=== PATIENT | female | born 1975 | race Caucasian/White ===

== ENCOUNTER 2023-04-03 18:46 | Emergency (ER) | payer MEDICARE, MEDICAID, SELFPAY ==
[2023-04-03 18:57] VITALS: BP 159/98; PULSE 111; RESP 16; TEMP 37.2; O2SAT 94; BMI 44.5
--- NOTE | 2023-04-03 19:41 | ED.GENADUL1 ---
Documented by User: Jesus Gatica MD 04/03/23 19:46 HPI - General Adult General Chief complaint: Fall Stated complaint: FALL Time Seen by Provider: 04/03/23 19:21 Source: patient Mode of arrival: walk-in Limitations: physical limitation History of Present Illness HPI narrative: the patient's here to be violated for abdominal pain. She was walking at a normal paced today and fell forward. She had her upper stomach. She is concerned because she is on Coumadin. 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 She's had numerous CTs in the past for her other medical conditions. She said her most recent INR was therapeutic. She has a little discomfort in her right wrist but it's her mid abdomen that hurts the most. She also has a loop recorder an insulin pump in her abdominal area. She did not have a syncopal episodes, no near syncopal episodes and she felt fine before this simple uncomplicated fall. She has no pain to her lower extremities had or neck. Related Data Allergies Allergy/AdvReac Type Severity Reaction Status Date / Time Unable to Assess Allergy Verified 04/03/23 18:56 PFSH PFS Social History Smoking status: Never smoker Exam Constitutional Vital Signs - 24 hr 04/03/23 18:57 04/03/23 20:33 Temperature 98.9 F Pulse Rate [Monitor] 111 H 88 Respiratory Rate 16 16 Blood Pressure [Left Arm] 159/98 H 134/95 H Pulse Oximetry 94 L 96 Oxygen Delivery Method Room Air Room Air Documenting provider has reviewed patient's vital signs: yes Common normals: no apparent distress General appearance: comfortable HENMT Common normals: normocephalic and head/scalp atraumatic Respiratory Common normals: normal respiratory effort and no use of accessory muscles Other: ribs are nontender to palpation GI Common normals: Normal to inspection, nondistended, normoactive bowel sounds present Other: minor abrasion to the epigastric area otherwise no bruising or hematomas acutely or from related trauma. Insulin pump in the lower left abdomen. Abdomen morbidly obese. No acute peritoneal findings Neuro Common normals: oriented x3 and CN's II-XII intact bilaterally Course Vital Signs Vital signs: Vital Signs Temperature 98.9 F 04/03/23 18:57 Pulse Rate 111 H 04/03/23 18:57 Respiratory Rate 16 04/03/23 18:57 Blood Pressure 159/98 H 04/03/23 18:57 Pulse Oximetry 94 L 04/03/23 18:57 Oxygen Delivery Method Room Air 04/03/23 18:57 Temperature 98.9 F 04/03/23 18:57 Pulse Rate 88 04/03/23 20:33 Respiratory Rate 16 04/03/23 20:33 Blood Pressure 134/95 H 04/03/23 20:33 Pulse Oximetry 96 04/03/23 20:33 Oxygen Delivery Method Room Air 04/03/23 20:33 Medical Decision Making MDM Narrative Medical decision making narrative: this patient presents for abdominal pain while taking Coumadin and is concerned about internal injury. She accepts the fact that we will have to give her more radiation with the CT scan. Her orthopedic examinations of the extremities is told benign and she does not need imaging. The care will be turned over to Dr. Jackman at the change of shift. Discharge Plan Discharge Chief Complaint: Fall Clinical Impression: Contusion of abdominal wall Patient Disposition: Home, Self-Care Instructions: Contusion in Adults (ED) Stand Alone Forms: Portal Instructions Referrals: Physician,Non-Staff, MD [Primary Care Provider] - 1 week Follow Up Appointments: follow up with your doctor next week for recheck Documented by User: Jonh Jackman MD 04/03/23 20:55 HPI - General Adult General Chief complaint: Fall Stated complaint: FALL Time Seen by Provider: 04/03/23 19:21 Related Data Allergies Allergy/AdvReac Type Severity Reaction Status Date / Time Unable to Assess Allergy Verified 04/03/23 18:56 PFSH PFSH Social History Smoking status: Never smoker Exam Constitutional Vital Signs - 24 hr 04/03/23 18:57 04/03/23 20:33 Temperature 98.9 F Pulse Rate [Monitor] 111 H 88 Respiratory Rate 16 16 Blood Pressure [Left Arm] 159/98 H 134/95 H Pulse Oximetry 94 L 96 Oxygen Delivery Method Room Air Room Air Course Vital Signs Vital signs: Vital Signs Temperature 98.9 F 04/03/23 18:57 Pulse Rate 111 H 04/03/23 18:57 Respiratory Rate 16 04/03/23 18:57 Blood Pressure 159/98 H 04/03/23 18:57 Pulse Oximetry 94 L 04/03/23 18:57 Oxygen Delivery Method Room Air 04/03/23 18:57 Temperature 98.9 F 04/03/23 18:57 Pulse Rate 88 04/03/23 20:33 Respiratory Rate 16 04/03/23 20:33 Blood Pressure 134/95 H 04/03/23 20:33 Pulse Oximetry 96 04/03/23 20:33 Oxygen Delivery Method Room Air 04/03/23 20:33 Medical Decision Making MDM Narrative Medical decision making narrative: this patient presents for abdominal pain while taking Coumadin and is concerned about internal injury. She accepts the fact that we will have to give her more radiation with the CT scan. Her orthopedic examinations of the extremities is told benign and she does not need imaging. The care will be turned over to Dr. Jackman at the change of shift. care assumed at change of shift. CT abdomen pending and returned as normal. Patient informed of the results and discharge home to follow up with her doctor Discharge Plan Discharge Chief Complaint: Fall Clinical Impression: Contusion of abdominal wall Patient Disposition: Home, Self-Care Instructions: Contusion in Adults (ED) Stand Alone Forms: Portal Instructions Referrals: Physician,Non-Staff, MD [Primary Care Provider] - 1 week Follow Up Appointments: follow up with your doctor next week for recheck
--- NOTE | 2023-04-03 19:43 | CT_ITS ---
[place] [address] Patient Name: BOBBY JULIO MRN: [id number] date: 1975 Sex: F Assigned Patient Location: ER Current Patient Location: ED.MAIN Accession/Order Number: [id number] Exam Date: 04/03/2023 19:58 Report Date: 04/03/2023 20:36 At the request of: ORION MENJIVAR Procedure: CT abdomen pelvis wo con EXAMINATION: CT abdomen pelvis wo con, 04/03/2023 7:58 PM EDT HISTORY: Trauma COMPARISON: 01/03/2023 TECHNIQUE: CT scan of the abdomen and pelvis was performed without IV contrast. CT dose reduction technique was used, including Automated Exposure Control. FINDINGS: LOWER CHEST: The visualized lungs are clear. LIVER: There is hepatomegaly. GALLBLADDER AND BILIARY SYSTEM: Status post cholecystectomy. SPLEEN: Unremarkable. PANCREAS: There is mild diffuse fatty atrophy of the pancreas. No pancreatic ductal dilatation. ADRENAL GLANDS: Unremarkable. KIDNEYS AND URETERS: No nephrolithiasis or hydronephrosis. No ureteral calculus. BLADDER: Unremarkable. GASTROINTESTINAL TRACT: No evidence of bowel obstruction or colitis. Moderate amount of stool in the colon. A normal appendix is visualized. VASCULATURE: The abdominal aorta is normal in caliber. RETROPERITONEUM: No lymphadenopathy. PERITONEUM/MESENTERY: No abdominal ascites. No free air. PELVIS: No pelvic ascites or lymphadenopathy. BODY WALL: Tiny fat-containing umbilical hernia. BONES: No acute abnormality. Degenerative changes of the sacroiliac joints bilaterally. IMPRESSION: 1. No acute process in the abdomen or pelvis. 2. Hepatomegaly. Electronically authenticated by: MARIA TERESA ATKINSON Date: 04/03/2023 20:36
[2023-04-03] MEDS: ACETAMINOPHEN 500 MG TABLET 1000 MG PO (20:27)
[2023-04-03 20:33] VITALS: BP 134/95; PULSE 88; RESP 16; O2SAT 96
== END 2023-04-03 21:06 | disposition home or self-care (01) ==
PROVIDERS: Emergency Provider Internal Medicine
DX: S30.1XXA Contusion of abdominal wall, initial encounter (principal); W19.XXXA Unspecified fall, initial encounter; Y93.01 Activity, walking, marching and hiking; Z79.01 Long term (current) use of anticoagulants
CPT/HCPCS: 74176; 99284

== ENCOUNTER 2023-04-22 08:58 | Outpatient (OUT) | payer MEDICARE, MEDICAID, SELFPAY ==
--- NOTE | 2023-04-22 | XR_ITS ---
The [address] [address] Patient Name: BOBBY JULIO MRN: [id number] date: 1975 Sex: F Assigned Patient Location: [facility] Current Patient Location: [facility] Accession/Order Number: [id number] Exam Date: 04/22/2023 09:14 Report Date: 04/22/2023 09:49 At the request of: JAYCE GAMING Procedure: XR foot RT min 3V PROCEDURE: XR foot RT min 3V, XR ankle RT min 3V HISTORY: RIGHT FOOT PAIN ; right ankle and dorsal foot pain in COMPARISON: None. FINDINGS: BONES:No fracture, acute abnormality, or significant arthropathy. SOFT TISSUES:No visible soft tissue swelling. EFFUSION:None visible. OTHER: Negative. IMPRESSION: 1. No acute bone abnormality, significant degenerative changes, or suspicious findings of the right ankle and foot. Electronically authenticated by: OMER CHARLES Date: 04/22/2023 09:49
--- NOTE | 2023-04-22 | XR_ITS ---
The [address] [address] Patient Name: BOBBY JULIO MRN: [id number] date: 1975 Sex: F Assigned Patient Location: [facility] Current Patient Location: [facility] Accession/Order Number: [id number] Exam Date: 04/22/2023 09:14 Report Date: 04/22/2023 09:49 At the request of: JAYCE GAMING Procedure: XR ankle RT min 3V PROCEDURE: XR foot RT min 3V, XR ankle RT min 3V HISTORY: RIGHT FOOT PAIN ; right ankle and dorsal foot pain in COMPARISON: None. FINDINGS: BONES:No fracture, acute abnormality, or significant arthropathy. SOFT TISSUES:No visible soft tissue swelling. EFFUSION:None visible. OTHER: Negative. IMPRESSION: 1. No acute bone abnormality, significant degenerative changes, or suspicious findings of the right ankle and foot. Electronically authenticated by: OMER CHARLES Date: 04/22/2023 09:49
== END 2023-04-22 08:59 | disposition home or self-care (01) ==
LOC: RAD 08:58
PROVIDERS: Visit Provider Physician Assistant
DX: M25.571 Pain in right ankle and joints of right foot (principal)
CPT/HCPCS: 73610; 73630

== ENCOUNTER 2023-05-20 08:51 | Outpatient (OUT) | payer MEDICARE, MEDICAID, SELFPAY ==
--- NOTE | 2023-05-20 08:56 | XR_ITS ---
The [address] [address] Patient Name: BOBBY JULIO MRN: [id number] date: 1975 Sex: F Assigned Patient Location: [facility] Current Patient Location: [facility] Accession/Order Number: [id number] Exam Date: 05/20/2023 08:56 Report Date: 05/20/2023 12:34 At the request of: JAYCE GAMING Procedure: XR foot RT min 3V PROCEDURE: XR foot RT min 3V HISTORY: RIGHT FOOT PAIN ; follow-up right fifth digit fracture COMPARISON: XR foot right 04/22/2023 FINDINGS: BONES:No fracture, acute abnormality, or significant arthropathy. SOFT TISSUES:No visible soft tissue swelling. EFFUSION:None visible. OTHER: Negative. XR/XR foot RT min 3V IMPRESSION: 1. No appreciable fracture or or acute bone abnormality with specific attention to the fifth toe. Electronically authenticated by: OMER CHARLES Date: 05/20/2023 12:34
== END 2023-05-20 08:52 | disposition home or self-care (01) ==
LOC: RAD 08:52
PROVIDERS: Visit Provider Physician Assistant
DX: S92.534A Nondisplaced fracture of distal phalanx of right lesser toe(s), initial encounter for closed fracture (principal)
CPT/HCPCS: 73630

== ENCOUNTER 2023-05-27 06:53 | Outpatient (RCR) | payer MEDICARE, MEDICAID, SELFPAY | END 2023-06-18 11:40 | disposition home or self-care (01) | LOC: PT 06:53 | PROVIDERS: Visit Provider Physician Assistant | DX: M76.71 Peroneal tendinitis, right leg (principal) | CPT/HCPCS: 97035; 97110; 97161 ==

== ENCOUNTER 2023-06-10 12:58 | Outpatient (RCR) | payer MEDICARE, MEDICAID, SELFPAY | END 2023-07-09 15:27 | disposition home or self-care (01) | LOC: PT 12:58 | PROVIDERS: Visit Provider Nurse Practitioner Family | DX: M25.511 Pain in right shoulder (principal) | CPT/HCPCS: 97110; 97161; 97530 ==

== ENCOUNTER 2023-07-16 09:13 | Day surgery (SDC) | payer MEDICARE, MEDICAID, SELFPAY ==
--- NOTE | 2023-07-16 | CT_ITS ---
The [place] [id number] Patient Name: BOBBY JULIO MRN: [id number] date: 1975 Sex: F Assigned Patient Location: LAB Current Patient Location: LAB Accession/Order Number: [id number] Exam Date: 07/16/2023 11:23 Report Date: 07/17/2023 19:17 At the request of: BAO CRUZ Procedure: CT shoulder RT wo con EXAM: CT shoulder RT wo con, [id number] HISTORY: Right Shoulder Internal Derangement TECHNIQUE: Helical CT images of the right shoulder were obtained after the administration of intra-articular contrast (performed and dictated separately). No IV contrast was given. Multiplanar reformats were generated at the scanner. Dose reduction technique used: Automated exposure control and/or adjustment of the mA and/or kV according to patient size and/or use of iterative reconstruction technique. COMPARISON: Right shoulder MRI 06/04/2020. FINDINGS: Intra-articular contrast is present within the glenohumeral joint. Small amount of curvilinear contrast thickening through the anterior superior labrum (series 3 image 17) with an otherwise normal-appearing adjacent labrum and middle glenohumeral ligament, most compatible with a sublabral hole/foramina. No labral tear demonstrated. The superior, middle, and inferior glenohumeral ligaments are intact. Glenohumeral articular cartilage is within normal limits. No significant glenohumeral osteoarthritis. No significant arthritis of the acromioclavicular joint. No extension of the intra-articular contrast into the subacromial/subdeltoid bursa to suggest full-thickness rotator cuff tear. Visualized biceps anchor and biceps tendon are intact. No acute fracture or dislocation. No significant atrophy of the rotator cuff muscles. Remaining visualized soft tissues are within normal limits. CT/CT shoulder RT wo con IMPRESSION: 1. Probable small sublabral hole/foramina in the anterior superior labrum. 2. No definite labral tear, full-thickness rotator cuff tear, or significant degenerative changes demonstrated. Electronically authenticated by: MEDHAT CRAIN Date: 07/17/2023 19:17
--- NOTE | 2023-07-16 09:32 | FL_ITS ---
[address] [address] Patient Name: BOBBY JULIO MRN: [id number] date: 1975 Sex: F Assigned Patient Location: LAB Current Patient Location: LAB Accession/Order Number: [id number] Exam Date: 07/16/2023 09:45 Report Date: 07/16/2023 11:51 At the request of: BAO CRUZ Procedure: FL guided needle placement EXAMINATION: FL shoulder inj RT, FL guided needle placement HISTORY: Right Shoulder Internal Derangement COMPARISON: No relevant comparison available. TECHNIQUE: An arthrogram was performed under fluoroscopic guidance using non-ionic contrast material in the usual sterile manner after obtaining informed consent. Standard level fluoroscopic mode of operation utilized. FINDINGS: JOINT: Right shoulder NEEDLE: 25 gauge, 3.5 spinal needle. MEDICATION: 2 mL buffered 1% lidocaine for subcutaneous anesthesia. Approximately 8 mL injected into joint space consisting of a mixture of 5 mL Omnipaque-300, 5 mL 1% Xylocaine. TECHNIQUE: Anterior approach under fluoroscopic guidance. CLINICAL: Decreased pain following the injection. COMPLICATIONS: None. OTHER: Negative. FL/FL guided needle placement IMPRESSION: 1. Technically successful arthrogram without complication. 2. Please see separate CT arthrogram report. Electronically authenticated by: OMER CHARLES Date: 07/16/2023 11:51
--- NOTE | 2023-07-16 09:32 | FL_ITS ---
[address] [address] Patient Name: BOBBY JULIO MRN: [id number] date: 1975 Sex: F Assigned Patient Location: LAB Current Patient Location: LAB Accession/Order Number: [id number] Exam Date: 07/16/2023 09:45 Report Date: 07/16/2023 11:51 At the request of: BAO CRUZ Procedure: FL shoulder inj RT EXAMINATION: FL shoulder inj RT, FL guided needle placement HISTORY: Right Shoulder Internal Derangement COMPARISON: No relevant comparison available. TECHNIQUE: An arthrogram was performed under fluoroscopic guidance using non-ionic contrast material in the usual sterile manner after obtaining informed consent. Standard level fluoroscopic mode of operation utilized. FINDINGS: JOINT: Right shoulder NEEDLE: 25 gauge, 3.5 spinal needle. MEDICATION: 2 mL buffered 1% lidocaine for subcutaneous anesthesia. Approximately 8 mL injected into joint space consisting of a mixture of 5 mL Omnipaque-300, 5 mL 1% Xylocaine. TECHNIQUE: Anterior approach under fluoroscopic guidance. CLINICAL: Decreased pain following the injection. COMPLICATIONS: None. OTHER: Negative. FL/FL shoulder inj RT IMPRESSION: 1. Technically successful arthrogram without complication. 2. Please see separate CT arthrogram report. Electronically authenticated by: OMER CHARLES Date: 07/16/2023 11:51
[2023-07-16 10:23] LABS: INR 1.02; Prothrombin Time 10.8 sec (9.0-11.6)
[2023-07-16] MEDS: LIDOCAINE HCL 15 ML, SODIUM BICARBONATE 2 MEQ INJ (11:15)
--- NOTE | 2023-07-16 11:43 | PC.NURSE ---
07/12/23 Pt instructed on procedure, date, time, and prep to hold coumadin x 5 days prior and have INR drawn before procedure.
== END 2023-07-16 11:30 ==
LOC: LAB 07-19 09:42
PROVIDERS: Radiology Diagnostic Radiology; Visit Provider Nurse Practitioner Family
DX: M24.811 Other specific joint derangements of right shoulder, not elsewhere classified (principal); Z79.01 Long term (current) use of anticoagulants
CPT/HCPCS: 20610; 23350; 36415; 73200; 77002; 85610; Q9967

== ENCOUNTER 2023-07-30 10:59 | Emergency (ER) | payer MEDICARE, MEDICAID, SELFPAY ==
[2023-07-30] VITALS (14 sets, daily range): BP systolic 146–170; BP diastolic 53–95; PULSE 61–83; RESP 15–24; TEMP 36.8; O2SAT 95–99; BMI 46.5
--- NOTE | 2023-07-30 11:11 | ED.GENADUL1 ---
HPI - General Adult General Chief complaint: Shortness of Breath/Dyspnea Stated complaint: COUGH/ SHORTNESS OF BREATH Time Seen by Provider: 07/30/23 11:08 History of Present Illness HPI narrative: patient here complaining of cough and shortness of breath and cough. She was at a different hospital today getting routine infusion of electrolytes when the staff suggested she go to the Emergency Room because of respiratory difficulties and problems. Patient has a history of interstitial lung disease and is on nighttime oxygen, and recently has been using nasal cannula throughout the day. She is on low flow oxygen. She also took one nebulizer treatment this morning. She has a history of cardiac arrhythmia but is currently off the medications because she has a loop recorder. She's had ablation previously and is been doing pretty well. She does not have a having a squeezing or pressure. She finished up a course of doxycycline antibiotic that was started by her primary care doctor. She says she still is having a fever of one oh two, purulent sputum and now the persisting shortness of breath. She has multiple medication ALLERGIES as noted. She does not use tobacco products. He says typically she needs a CAT scan to exclude pneumonia because of her severe findings of interstitial lung disease obscure rational interpretation of her chest x-ray.she is on immune suppressive therapy for her rheumatoid arthritis. Related Data Home Medications Medication Instructions Recorded Confirmed bisoprolol fumarate 10 mg tablet 10 mg PO .every evening 07/12/23 07/16/23 bisoprolol fumarate 5 mg tablet 5 mg PO .every morning 07/12/23 07/16/23 furosemide 40 mg tablet (Lasix) 40 mg PO DAILY 07/12/23 07/16/23 furosemide 40 mg tablet (Lasix) 40 mg PO DAILY PRN weight gain 07/12/23 07/16/23 insulin omnipod CONT 07/12/23 mesalamine 0.375 gram 1.5 g PO DAILY 07/12/23 07/16/23 capsule,extended release 24 hr pantoprazole 40 mg granules 40 mg PO BID 07/12/23 07/16/23 delayed-release for susp in packet (Protonix) paroxetine HCl 30 mg tablet (Paxil) 30 mg PO DAILY 07/12/23 07/16/23 warfarin 5 mg tablet 2.5 mg PO .2 times a week 07/12/23 07/16/23 warfarin 7.5 mg tablet 7.5 mg PO .5 times a week 07/12/23 07/16/23 Allergies Allergy/AdvReac Type Severity Reaction Status Date / Time abatacept Allergy Unknown Verified 07/16/23 11:38 adalimumab [From Humira] Allergy Unknown Verified 07/16/23 11:38 amiloride Allergy Unknown Verified 07/16/23 11:38 amoxicillin Allergy Unknown Verified 07/16/23 11:38 aprepitant [From Emend] Allergy Unknown Verified 07/16/23 11:38 azithromycin [From Zithromax] Allergy Unknown Verified 07/16/23 11:38 cefaclor [From Ceclor] Allergy Unknown Verified 07/16/23 11:38 cefdinir [From Omnicef] Allergy Unknown Verified 07/16/23 11:38 celecoxib [From Celebrex] Allergy Unknown Verified 07/16/23 11:38 ciprofloxacin [From Cipro] Allergy Unknown Verified 07/16/23 11:38 clarithromycin [From Biaxin] Allergy Unknown Verified 07/16/23 11:38 clindamycin Allergy Unknown Verified 07/16/23 11:38 clonidine Allergy Unknown Verified 07/16/23 11:38 eplerenone [From Inspra] Allergy Unknown Verified 07/16/23 11:38 ertapenem [From Invanz] Allergy hives, Verified 07/16/23 11:38 facial swelling erythromycin base Allergy Unknown Verified 07/16/23 11:38 [From Ilosone] fosaprepitant [From Emend] Allergy Unknown Verified 07/16/23 11:38 isosorbide [From Imdur] Allergy Unknown Verified 07/16/23 11:38 losartan Allergy Unknown Verified 07/16/23 11:38 methotrexate Allergy Unknown Verified 07/16/23 11:38 methyldopa Allergy Hives Verified 07/16/23 11:38 nitrofurantoin Allergy Hives Verified 07/16/23 11:38 [From Macrobid] Penicillins Allergy Unknown Verified 07/16/23 11:38 ropinirole [From Requip] Allergy Unknown Verified 07/16/23 11:38 spironolactone Allergy Unknown Verified 07/16/23 11:38 sulfamethoxazole Allergy Unknown Verified 07/16/23 11:38 [From Bactrim] telithromycin [From Ketek] Allergy Unknown Verified 07/16/23 11:38 tocilizumab Allergy Unknown Verified 07/16/23 11:38 trimethoprim [From Bactrim] Allergy Unknown Verified 07/16/23 11:38 venlafaxine [From Effexor] Allergy Unknown Verified 07/16/23 11:38 willow Allergy Unknown Verified 07/16/23 11:38 augmentin Allergy Unknown Uncoded 07/16/23 11:38 avelox Allergy unk Uncoded 07/16/23 11:38 cardizem Allergy Unknown Uncoded 07/16/23 11:38 cats Allergy Unknown Uncoded 07/16/23 11:38 cefdinir Allergy Unknown Uncoded 07/16/23 11:38 chloraprep Allergy itching Uncoded 07/16/23 11:38 flu vaccine Allergy Hives Uncoded 07/16/23 11:38 gabapentin Allergy Unknown Uncoded 07/16/23 11:38 simvastatin Allergy Hives Uncoded 07/12/23 14:07 tofacitinib Allergy Unknown Uncoded 07/16/23 11:38 [facility] Medical History (Updated 07/30/23 @ 13:07 by Jesus Gatica MD) Anxiety and depression ?F41.9 - Anxiety disorder, unspecified (ICD-10) ?F32.A - Depression, unspecified (ICD-10) Asthma ?J45.909 - Unspecified asthma, uncomplicated (ICD-10) Crohn's disease ?K50.90 - Crohn's disease, unspecified, without complications (ICD-10) Diabetes ?E11.9 - Type 2 diabetes mellitus without complications (ICD-10) Gastroparesis ?K31.84 - Gastroparesis (ICD-10) GERD (gastroesophageal reflux disease) ?K21.9 - Gastro-esophageal reflux disease without esophagitis (ICD-10) Hiatal hernia ?K44.9 - Diaphragmatic hernia without obstruction or gangrene (ICD-10) High cholesterol ?E78.00 - Pure hypercholesterolemia, unspecified (ICD-10) HTN (hypertension) ?I10 - Essential (primary) hypertension (ICD-10) HENRRY (obstructive sleep apnea) ?G47.33 - Obstructive sleep apnea (adult) (pediatric) (ICD-10) Paroxysmal atrial fibrillation ?I48.0 - Paroxysmal atrial fibrillation (ICD-10) Rheumatoid arthritis ?M06.9 - Rheumatoid arthritis, unspecified (ICD-10) 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 rheumatoid arthritis of unspecified site (ICD-10) Right shoulder pain ?M25.511 - Pain in right shoulder (ICD-10) Surgical History (Updated 07/12/23 @ 14:56 by Collette Hylton) Encounter for Essure implantation ?Z30.2 - Encounter for sterilization (ICD-10) Encounter for pain management ?R52 - Pain, unspecified (ICD-10) H/O arthroscopy of left knee ?Z98.890 - Other specified postprocedural states (ICD-10) H/O exploratory laparotomy ?Z98.890 - Other specified postprocedural states (ICD-10) H/O: hysterectomy ?Z90.710 - Acquired absence of both cervix and uterus (ICD-10) History of cardiac radiofrequency ablation ?Z98.890 - Other specified postprocedural states (ICD-10) History of cholecystectomy ?Z90.49 - Acquired absence of other specified parts of digestive tract (ICD-10) History of endometrial ablation ?Z98.890 - Other specified postprocedural states (ICD-10) History of endoscopy ?Z98.890 - Other specified postprocedural states (ICD-10) Port-A-Cath in place ?Z95.828 - Presence of other vascular implants and grafts (ICD-10) S/p bilateral myringotomy with tube placement ?Z96.22 - Myringotomy tube(s) status (ICD-10) S/P cardiac cath ?Z98.890 - Other specified postprocedural states (ICD-10) S/P tonsillectomy and adenoidectomy ?Z90.89 - Acquired absence of other organs (ICD-10) Status post placement of implantable loop recorder ?Z95.818 - Presence of other cardiac implants and grafts (ICD-10) Social History Smoking status: Never smoker Exam Narrative Exam Narrative: awake alert oriented ?3. Pulse oximetry ninety-seven percent on 1 L. She does not appear in any distress Constitutional her skin is warm and dry colors good there is no scleral icterus or evidence of anemia. I examination shows no conjunctivitis or pallor or scleral icterus. Lungs do not have any wheezing at this time. There is no rales or rhonchi. Heart rate and rhythm are normal with no evidence of ectopy or tachycardia. Legs have chronic venous insufficiency but good arterial pulses and color to the limbs. Neurological examination shows no focal neurological deficits or findings. Constitutional Vital Signs, click to edit/add: Last Vital Signs Temp 98.2 F 07/30/23 11:06 Pulse 62 07/30/23 12:31 Resp 20 07/30/23 12:31 BP 151/72 H 07/30/23 12:31 Pulse Ox 97 07/30/23 12:31 O2 Del Method Nasal Cannula 07/30/23 12:34 O2 Flow Rate 2 07/30/23 12:34 Course Vital Signs Vital signs: Vital Signs Temperature 98.2 F 07/30/23 11:06 Pulse Rate 83 07/30/23 11:06 Respiratory Rate 20 07/30/23 11:06 Blood Pressure 170/84 H 07/30/23 11:06 Pulse Oximetry 97 07/30/23 11:06 Oxygen Delivery Method Room Air 07/30/23 11:06 Temperature 98.2 F 07/30/23 11:06 Pulse Rate 62 07/30/23 12:31 Respiratory Rate 20 07/30/23 12:31 Blood Pressure 151/72 H 07/30/23 12:31 Pulse Oximetry 97 07/30/23 12:31 Oxygen Delivery Method Nasal Cannula 07/30/23 12:34 Oxygen Delivery Flow Rate 2 07/30/23 12:34 Medical Decision Making MDM Narrative Medical decision making narrative: patient presents with upper est[place] symptoms that have not really improved. Because of her interstitial lung disease she suggest, and I agree that CT imaging would be the best way to rule out any infiltrative process. She will be given a nebulizer treatment. She finished one course of antibiotics. Consideration of secondary course will be given but because her multitude of ALLERGIES this would be discussed and ultimately let the patient help make the clinical decision. Additionally her potassium is 3.3. We'll try to reach out to her infusion center significance get her in for her infusion of her potassium Lab Data Labs: Lab Results 07/30/23 Range/Units 11:23 WBC 18.5 H (4.0-11.0) 10^3/uL RBC 4.50 (4.20-5.40) 10^6/uL Hgb 12.6 (12.0-16.0) g/dL Hct 37.8 (36.0-48.0) % MCV 84.0 (81.0-99.0) fL MCH 28.0 (26.7-34.0) pg MCHC 33.3 (29.9-35.2) g/dL RDW 14.1 (11.0-15.0) % Plt Count 322 (150-450) 10^3/uL MPV 11.3 (9.5-13.5) fL Neut % (Auto) 75.1 H (43.0-75.0) % Lymph % (Auto) 16.1 L (20.5-60.0) % [place] % (Auto) 5.8 (1.7-12.0) % Eos % (Auto) 0.1 L (0.9-7.0) % Baso % (Auto) 0.3 (0.2-2.0) % Neut # (Auto) 13.9 H (1.4-6.5) 10^3/uL Lymph # (Auto) 3.0 (1.2-3.8) 10^3/uL [place] # (Auto) 1.1 H (0.3-0.8) 10^3/uL Eos # (Auto) 0.0 (0.0-0.7) 10^3/uL Baso # (Auto) 0.1 (0.0-0.1) 10^3/uL Abs Immat Gran (auto) 0.48 H (0.00-0.03) 10^3/uL Imm/Tot Granulo (auto) 2.6 H (0.0-0.5) % D-Dimer <0.19 (<=0.59) mg/L FEU Sodium 141 (136-145) mmol/L Potassium 3.3 L (3.5-5.1) mmol/L Chloride 101 (98-107) mmol/L Carbon Dioxide 32.9 H (21.0-32.0) mmol/L Anion Gap 10.4 BUN 18.0 (7.0-18.0) mg/dL Creatinine 0.94 (0.55-1.02) mg/dL Est GFR ( Amer) >60 (>=60) Est GFR (Non-Af Amer) >60 (>=60) BUN/Creatinine Ratio 19.1 Glucose 171 H (74-106) mg/dL Calcium 8.3 L (8.5-10.1) mg/dL Total Bilirubin 0.2 (0.2-1.0) mg/dL AST 16 (15-37) U/L ALT 32 (14-59) U/L Alkaline Phosphatase 94 (46-116) U/L Troponin I High Sens 5.9 (4.0-51.3) pg/mL NT-Pro-B Natriuret Pep 614.0 H (<=450.0) pg/mL Total Protein 6.3 L (6.4-8.2) g/dL Albumin 3.2 L (3.4-5.0) g/dL Globulin 3.1 g/dL Albumin/Globulin Ratio 1.0 Discharge Plan Discharge Chief Complaint: Shortness of Breath/Dyspnea Clinical Impression: Acute upper respiratory infection Patient Disposition: Home, Self-Care Time of Disposition Decision: 13:07 Prescriptions / Home Meds: No Action warfarin 5 mg tablet 2.5 mg PO .2 times a week Rx Instructions: Wednesday and warfarin 7.5 mg tablet 7.5 mg PO .5 times a week Rx Instructions: M,Meena,W, F, Sa mesalamine 0.375 gram capsule,extended release 24hr 1.5 g PO DAILY paroxetine HCl [Paxil] 30 mg tablet 30 mg PO DAILY pantoprazole [Protonix] [address] for susp in packet 40 mg PO BID furosemide [Lasix] 40 mg tablet 40 mg PO DAILY furosemide [Lasix] 40 mg tablet 40 mg PO DAILY PRN (Reason: weight gain) bisoprolol fumarate 5 mg tablet 5 mg PO .every morning bisoprolol fumarate 10 mg tablet 10 mg PO .every evening insulin omnipod auto-injector CONT Additional Instructions: consider taking nebulizer treatments three or four times a day at home. Continue other meds Stand Alone Forms: Portal Instructions Referrals: Ninoska Shankar [Primary Care Provider] - 1 week
--- NOTE | 2023-07-30 11:19 | ECG_ITS ---
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
[2023-07-30 11:31] LABS: Basophils Absolute Auto 0.1 10^3/uL (0.0-0.1); Basophils Percent Auto 0.3 % (0.2-2.0); Eosinophils Percent Auto 0.1 % (0.9-7.0); Hematocrit 37.8 % (36.0-48.0); Hemoglobin 12.6 g/dL (12.0-16.0); Immature Granulocytes Abs Auto 0.48 10^3/uL (0.00-0.03); Immature Granulocytes Pct Auto 2.6 % (0.0-0.5); Lymphocytes Percent Auto 16.1 % (20.5-60.0); Mean Corpuscular HGB Conc 33.3 g/dL (29.9-35.2); Mean Platelet Volume 11.3 fL (9.5-13.5); Monocytes Absolute Auto 1.1 10^3/uL (0.3-0.8); Monocytes Percent Auto 5.8 % (1.7-12.0); Neutrophils Absolute Auto 13.9 10^3/uL (1.4-6.5); Neutrophils Percent Auto 75.1 % (43.0-75.0); Platelet Count 322 10^3/uL (150-450); Red Cell Distribution Width 14.1 % (11.0-15.0); White Blood Count 18.5 10^3/uL (4.0-11.0)
--- NOTE | 2023-07-30 11:31 | CT_ITS ---
[address] [address] Patient Name: BOBBY JULIO MRN: [id number] date: 1975 Sex: F Assigned Patient Location: ER Current Patient Location: Accession/Order Number: [id number] Exam Date: 07/30/2023 11:46 Report Date: 07/30/2023 12:45 At the request of: ORION MENJIVAR Procedure: CT chest wo con EXAMINATION: CT chest wo con HISTORY: rule out pneumonia , shortness breath, wheezing, chest pain with cough and deep breathing COMPARISON: No relevant comparison available. TECHNIQUE: Multi-planar CT images were obtained without and/or with IV contrast as indicated by examination type. Axial, Coronal, and Sagittal images. Dose reduction techniques were achieved by using automated exposure control and/or adjustment of mA and/or kV according to patient size and/or use of iterative reconstruction technique. FINDINGS: LUNGS: No visible pulmonary disease. PLEURA: No mass, effusion, or pneumothorax. VASCULATURE: No abnormality. ASHWINI: No mass or adenopathy. MEDIASTINUM: No mass or adenopathy. CARDIAC: No enlargement, pericardial thickening, or significant calcification. AORTA: No aneurysm or dissection. CHEST WALL: No mass or axillary adenopathy. BONES: No bone lesion or fracture. LIMITED ABDOMEN: No suspicious findings Limited images of the upper abdomen. OTHER: Negative. CT/CT chest wo con IMPRESSION: 1. No abnormal or suspicious findings to account for patient's symptoms. Electronically authenticated by: OMER CHARLES Date: 07/30/2023 12:45
--- NOTE | 2023-07-30 11:33 | PC.NURSE ---
port site was accessed per [facility] per pt today for blood draw to check potassium as pt get frequent replacements of potassium, magnesium and phosphorus. blood return without problem and flushes well. pt reports this is compatible with ct injections and has had many times but does not have card with her today.
--- NOTE | 2023-07-30 11:38 | PC.NURSE ---
ekg obtained and pt placed on monitor for routine monitoring of hr, bp and spo2
[2023-07-30 11:55] LABS: Alanine Aminotransferase 32 U/L (14-59); Albumin Level 3.2 g/dL (3.4-5.0); Alkaline Phosphatase 94 U/L (46-116); Anion Gap 10.4; Aspartate Amino Transferase 16 U/L (15-37); BUN Creatinine Ratio 19.1; Bilirubin Total 0.2 mg/dL (0.2-1.0); Calcium 8.3 mg/dL (8.5-10.1); Carbon Dioxide 32.9 mmol/L (21.0-32.0); Chloride 101 mmol/L (98-107); Estimated GFR (African America >60 (>=60); Estimated GFR (Non-African Ame >60 (>=60); Globulin 3.1 g/dL; Glucose 171 mg/dL (74-106); Potassium 3.3 mmol/L (3.5-5.1); Sodium 141 mmol/L (136-145); Total Protein 6.3 g/dL (6.4-8.2); Troponin I High Sensitivity 5.9 pg/mL (4.0-51.3)
[2023-07-30 12:02] LABS: D Dimer <0.19 mg/L FEU (<=0.59)
[2023-07-30] MEDS: HEPARIN SODIUM (PORCINE) PF LOCK FLUSH 500 UNIT/5 ML SYRINGE IV (13:20)
[2023-07-30] MEDS: IPRATROPIUM/ALBUTEROL SULFATE 3 ML AMPUL.NEB IH (13:20)
== END 2023-07-30 13:35 | disposition home or self-care (01) ==
PROVIDERS: Emergency Provider Emergency Medicine Emergency Medical Services
DX: J06.9 Acute upper respiratory infection, unspecified (principal); R06.02 Shortness of breath; J84.9 Interstitial pulmonary disease, unspecified; Z95.818 Presence of other cardiac implants and grafts; M06.9 Rheumatoid arthritis, unspecified; Z79.899 Other long term (current) drug therapy; Z79.4 Long term (current) use of insulin; Z79.01 Long term (current) use of anticoagulants; F41.9 Anxiety disorder, unspecified; F32.A Depression, unspecified; J45.909 Unspecified asthma, uncomplicated; K50.90 Crohn's disease, unspecified, without complications; E11.9 Type 2 diabetes mellitus without complications; K21.9 Gastro-esophageal reflux disease without esophagitis; K44.9 Diaphragmatic hernia without obstruction or gangrene; E78.00 Pure hypercholesterolemia, unspecified; I10 Essential (primary) hypertension; G47.33 Obstructive sleep apnea (adult) (pediatric); I48.0 Paroxysmal atrial fibrillation; Z90.710 Acquired absence of both cervix and uterus; Z90.49 Acquired absence of other specified parts of digestive tract
CPT/HCPCS: 36415; 36591; 71250; 80053; 83880; 84484; 85025; 85378; 93005; 99285

== ENCOUNTER 2023-09-03 15:01 | Emergency (ER) | payer MEDICARE, MEDICAID, SELFPAY ==
[2023-09-03 15:05] VITALS: BP 136/91; PULSE 90; RESP 18; TEMP 36.6; O2SAT 98; BMI 43.0
--- NOTE | 2023-09-03 15:14 | XR_ITS ---
The [address] [address] Patient Name: BOBBY JULIO MRN: [id number] date: 1975 Sex: F Assigned Patient Location: ER Current Patient Location: ER Accession/Order Number: [id number] Exam Date: 09/03/2023 15:50 Report Date: 09/03/2023 16:11 At the request of: ELOINA ARMENTA Procedure: XR chest 2V EXAM: XR chest 2V HISTORY: Cough . Congestion for 4 days. Increasing shortness of breath. COMPARISON: 10/13/2022 TECHNIQUE: Upright PA and lateral chest x-ray FINDINGS: The heart is not enlarged and the vasculature is not distended. No acute infiltrate, effusion or pneumothorax is identified. A left-sided infusion catheter is in place with the tip at the junction of the right atrium and superior vena cava. A loop recorder is noted. The osseous structures are grossly intact. XR/XR chest 2V IMPRESSION: No acute infiltrate or evidence of cardiac decompensation. The overall appearance of the chest is unchanged. Electronically authenticated by: KENDRA MARTINEZ Date: 09/03/2023 16:11
[2023-09-03 15:39] LABS: Influenza Virus A Antigen Negative; Influenza Virus B Antigen Negative; Internal Control Within Normal Limits; SARS-CoV-2 Ag NEGATIVE (NEGATIVE); Strep A Antigen Screen Negative
--- NOTE | 2023-09-03 16:26 | ED_ITS ---
HPI - URI/Sore Throat General Chief Complaint: Upper Respiratory Infection Stated Complaint: URTI Time Seen by Provider: 09/03/23 15:14 Source: patient History of Present Illness HPI Narrative: patient is a 47-year-old female who presents to the emergency department for a three day history of cough, sore throat, congestion. She has had no objective fevers, she believes she had a fever three days ago. She has had no vomiting or diarrhea. She has a history of interstitial lung disease, she wears oxygen chronically by nasal cannula. She has had productive coughing, no hemoptysis. She is not concerned for . She was treated with antibiotics last month for rhinovirus . She just received an infusion for her interstitial lung disease at [facility], she left that hospital and came to this emergency department to be treated. No medications taken prior to arrival. Related Data Home Medications Medication Instructions Recorded Confirmed bisoprolol fumarate 10 mg tablet 10 mg PO .every evening 07/12/23 07/16/23 bisoprolol fumarate 5 mg tablet 5 mg PO .every morning 07/12/23 07/16/23 furosemide 40 mg tablet (Lasix) 40 mg PO DAILY 07/12/23 07/16/23 furosemide 40 mg tablet (Lasix) 40 mg PO DAILY PRN weight gain 07/12/23 07/16/23 insulin omnipod CONT 07/12/23 mesalamine 0.375 gram 1.5 g PO DAILY 07/12/23 07/16/23 capsule,extended release 24 hr pantoprazole 40 mg granules 40 mg PO BID 07/12/23 07/16/23 delayed-release for susp in packet (Protonix) paroxetine HCl 30 mg tablet (Paxil) 30 mg PO DAILY 07/12/23 07/16/23 warfarin 5 mg tablet 2.5 mg PO .2 times a week 07/12/23 07/16/23 warfarin 7.5 mg tablet 7.5 mg PO .5 times a week 07/12/23 07/16/23 Previous Rx's Medication Instructions Recorded eeawougzsoyciah-zgrjiomyrzxiwpd-SG 10 ml PO Q6H PRN cold symptoms 09/03/23 2 mg-30 mg-10 mg/5 mL oral syrup #200 mL (Bromfed DM) prednisone 20 mg tablet 60 mg PO DAILY 3 days #9 tabs 09/03/23 Allergies Allergy/AdvReac Type Severity Reaction Status Date / Time abatacept Allergy Unknown Verified 07/16/23 11:38 adalimumab [From Humira] Allergy Unknown Verified 07/16/23 11:38 amiloride Allergy Unknown Verified 07/16/23 11:38 amoxicillin Allergy Unknown Verified 07/16/23 11:38 aprepitant [From Emend] Allergy Unknown Verified 07/16/23 11:38 azithromycin [From Zithromax] Allergy Unknown Verified 07/16/23 11:38 cefaclor [From Ceclor] Allergy Unknown Verified 07/16/23 11:38 cefdinir [From Omnicef] Allergy Unknown Verified 07/16/23 11:38 celecoxib [From Celebrex] Allergy Unknown Verified 07/16/23 11:38 ciprofloxacin [From Cipro] Allergy Unknown Verified 07/16/23 11:38 clarithromycin [From Biaxin] Allergy Unknown Verified 07/16/23 11:38 clindamycin Allergy Unknown Verified 07/16/23 11:38 clonidine Allergy Unknown Verified 07/16/23 11:38 eplerenone [From Inspra] Allergy Unknown Verified 07/16/23 11:38 ertapenem [From Invanz] Allergy hives, Verified 07/16/23 11:38 facial swelling erythromycin base Allergy Unknown Verified 07/16/23 11:38 [From Ilosone] fosaprepitant [From Emend] Allergy Unknown Verified 07/16/23 11:38 isosorbide [From Imdur] Allergy Unknown Verified 07/16/23 11:38 losartan Allergy Unknown Verified 07/16/23 11:38 methotrexate Allergy Unknown Verified 07/16/23 11:38 methyldopa Allergy Hives Verified 07/16/23 11:38 nitrofurantoin Allergy Hives Verified 07/16/23 11:38 [From Macrobid] Penicillins Allergy Unknown Verified 07/16/23 11:38 ropinirole [From Requip] Allergy Unknown Verified 07/16/23 11:38 spironolactone Allergy Unknown Verified 07/16/23 11:38 sulfamethoxazole Allergy Unknown Verified 07/16/23 11:38 [From Bactrim] telithromycin [From Ketek] Allergy Unknown Verified 07/16/23 11:38 tocilizumab Allergy Unknown Verified 07/16/23 11:38 trimethoprim [From Bactrim] Allergy Unknown Verified 07/16/23 11:38 venlafaxine [From Effexor] Allergy Unknown Verified 07/16/23 11:38 willow Allergy Unknown Verified 07/16/23 11:38 augmentin Allergy Unknown Uncoded 07/16/23 11:38 avelox Allergy unk Uncoded 07/16/23 11:38 cardizem Allergy Unknown Uncoded 07/16/23 11:38 cats Allergy Unknown Uncoded 07/16/23 11:38 cefdinir Allergy Unknown Uncoded 07/16/23 11:38 chloraprep Allergy itching Uncoded 07/16/23 11:38 flu vaccine Allergy Hives Uncoded 07/16/23 11:38 gabapentin Allergy Unknown Uncoded 07/16/23 11:38 simvastatin Allergy Hives Uncoded 07/12/23 14:07 tofacitinib Allergy Unknown Uncoded 07/16/23 11:38 Review of Systems ROS Constitutional Reports: fever and chills Ears, nose, mouth, and throat Reports: throat pain and nasal congestion Cardiovascular Denies: chest pain Respiratory Reports: cough; Denies: shortness of breath Gastrointestinal Denies: nausea or vomiting Neurological Denies: headache Hematologic/Lymphatic Denies: easy bruising Allergic/Immunologic Denies: hives PFSH [facility] Medical History (Updated 09/03/23 @ 16:26 by LIMA Jack) Anxiety and depression ?F41.9 - Anxiety disorder, unspecified (ICD-10) ?F32.A - Depression, unspecified (ICD-10) Asthma ?J45.909 - Unspecified asthma, uncomplicated (ICD-10) Crohn's disease ?K50.90 - Crohn's disease, unspecified, without complications (ICD-10) Diabetes ?E11.9 - Type 2 diabetes mellitus without complications (ICD-10) Gastroparesis ?K31.84 - Gastroparesis (ICD-10) GERD (gastroesophageal reflux disease) ?K21.9 - Gastro-esophageal reflux disease without esophagitis (ICD-10) Hiatal hernia ?K44.9 - Diaphragmatic hernia without obstruction or gangrene (ICD-10) High cholesterol ?E78.00 - Pure hypercholesterolemia, unspecified (ICD-10) HTN (hypertension) ?I10 - Essential (primary) hypertension (ICD-10) HENRRY (obstructive sleep apnea) ?G47.33 - Obstructive sleep apnea (adult) (pediatric) (ICD-10) Paroxysmal atrial fibrillation ?I48.0 - Paroxysmal atrial fibrillation (ICD-10) Rheumatoid arthritis ?M06.9 - Rheumatoid arthritis, unspecified (ICD-10) 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 rheumatoid arthritis of unspecified site (ICD-10) Right shoulder pain ?M25.511 - Pain in right shoulder (ICD-10) Surgical History (Updated 07/12/23 @ 14:56 by Collette Hylton) Encounter for Essure implantation ?Z30.2 - Encounter for sterilization (ICD-10) Encounter for pain management ?R52 - Pain, unspecified (ICD-10) H/O arthroscopy of left knee ?Z98.890 - Other specified postprocedural states (ICD-10) H/O exploratory laparotomy ?Z98.890 - Other specified postprocedural states (ICD-10) H/O: hysterectomy ?Z90.710 - Acquired absence of both cervix and uterus (ICD-10) History of cardiac radiofrequency ablation ?Z98.890 - Other specified postprocedural states (ICD-10) History of cholecystectomy ?Z90.49 - Acquired absence of other specified parts of digestive tract (ICD- 10) History of endometrial ablation ?Z98.890 - Other specified postprocedural states (ICD-10) History of endoscopy ?Z98.890 - Other specified postprocedural states (ICD-10) Port-A-Cath in place ?Z95.828 - Presence of other vascular implants and grafts (ICD-10) S/p bilateral myringotomy with tube placement ?Z96.22 - Myringotomy tube(s) status (ICD-10) S/P cardiac cath ?Z98.890 - Other specified postprocedural states (ICD-10) S/P tonsillectomy and adenoidectomy ?Z90.89 - Acquired absence of other organs (ICD-10) Status post placement of implantable loop recorder ?Z95.818 - Presence of other cardiac implants and grafts (ICD-10) Social History Smoking status: Never smoker Exam Narrative Exam Narrative: Gen.: Awake, alert, in no distress; no coughing noted throughout the duration of the exam Head: Normocephalic, atraumatic ENT: Moist mucous membranes; airway widely open and patent with uvula midline, no trismus or drooling. Clear speech. No tonsillar edema or exudate. Mild cobblestoning noted in the posterior pharynx Respiratory: No respiratory distress, lungs clear bilaterally Cardio: Regular rate and rhythm Extremities: Moves extremities equally Psych: Normal mood and affect Neuro: No focal neuro deficit Skin: Warm, dry, intact Constitutional Vital Signs, click to edit/add: Last Vital Signs Temp 97.9 F 09/03/23 15:05 Pulse 90 09/03/23 15:05 Resp 18 09/03/23 15:05 BP 136/91 09/03/23 15:05 Pulse Ox 98 09/03/23 15:05 O2 Del Method Room Air 09/03/23 15:05 Course Vital Signs Vital signs: Vital Signs Temperature 97.9 F 09/03/23 15:05 Pulse Rate 90 09/03/23 15:05 Respiratory Rate 18 09/03/23 15:05 Blood Pressure 136/91 09/03/23 15:05 Pulse Oximetry 98 09/03/23 15:05 Oxygen Delivery Method Room Air 09/03/23 15:05 Temperature 97.9 F 09/03/23 15:05 Pulse Rate 90 09/03/23 15:05 Respiratory Rate 18 09/03/23 15:05 Blood Pressure 136/91 09/03/23 15:05 Pulse Oximetry 98 09/03/23 15:05 Oxygen Delivery Method Room Air 09/03/23 15:05 MDM - URI/Sore Throat MDM Narrative Medical decision making narrative: patient with negative Covid, negative influenza and negative strep testing. She has normal vital signs in the Emergency Room with no fevers, tachycardia or hypoxia. Two-view chest x-ray reviewed by the radiologist with no evidence of acute cardiopulmonary changes. Patient has an extensive ALLERGY list and states she is not able to take most antibiotics, at this time I suspect her symptoms are viral, although she was given an injection of Rocephin until her strep culture results, she verbalizes that she is able to take Rocephin despite the fact that she is listed as ALLERGIC to all cephalosporins. She was given BMX solution, Bromfed-DM and prednnisone for home. Follow-up with PCP and return to the Emergency Room if symptoms change or worsen. Medical Records Attestation: I reviewed the patient's medical records. Lab Data Labs: Lab Results 09/03/23 Range/Units 15:15 SARS-CoV-2 (PCR) Negative (NEGATIVE) Influenza Type A Ag Negative Influenza Type B Ag Negative Streptococcus Screen Negative Imaging Data Chest x-ray: Attestation: I have reviewed the pertinent imaging results. Discharge Plan Discharge Chief Complaint: Upper Respiratory Infection Clinical Impression: Upper respiratory infection, Pharyngitis Patient Disposition: Home, Self-Care Time of Disposition Decision: 16:25 Condition: Good Prescriptions / Home Meds: New prednisone 20 mg tablet 60 mg PO DAILY 3 Days Qty: 9 0RF mwscrkzcgzvpwvc-bxczksfkc-VR [Bromfed DM] 2-30-10 mg/5 mL syrup 10 ml PO Q6H PRN (Reason: cold symptoms) Qty: 200 0RF No Action warfarin 5 mg tablet 2.5 mg PO .2 times a week Rx Instructions: Wednesday and warfarin 7.5 mg tablet 7.5 mg PO .5 times a week Rx Instructions: M,Meena,W, F, Sa mesalamine 0.375 gram capsule,extended release 24hr 1.5 g PO DAILY paroxetine HCl [Paxil] 30 mg tablet 30 mg PO DAILY pantoprazole [Protonix] [address] for susp in packet 40 mg PO BID furosemide [Lasix] 40 mg tablet 40 mg PO DAILY furosemide [Lasix] 40 mg tablet 40 mg PO DAILY PRN (Reason: weight gain) bisoprolol fumarate 5 mg tablet 5 mg PO .every morning bisoprolol fumarate 10 mg tablet 10 mg PO .every evening insulin omnipod auto-injector CONT Instructions: Pharyngitis (ED), Upper Respiratory Infection (ED) Stand Alone Forms: Portal Instructions Referrals: Ninoska Shankar [Primary Care Provider] - 1 week Discharge Date/Time: 09/03/23 16:44
[2023-09-03] MEDS: CEFTRIAXONE 1,000 MG, LIDOCAINE HCL/PF 2.1 ML IM (16:39)
[2023-09-04 13:54] LABS: SARS-CoV-2 NAA NOT DETECTED (NOT DETECTE)
== END 2023-09-03 16:44 | disposition home or self-care (01) ==
PROVIDERS: Physician Assistant; Emergency Provider Emergency Medicine
DX: J06.9 Acute upper respiratory infection, unspecified (principal); J02.9 Acute pharyngitis, unspecified; Z20.822 Contact with and (suspected) exposure to COVID-19; Z79.899 Other long term (current) drug therapy; Z79.01 Long term (current) use of anticoagulants; Z99.81 Dependence on supplemental oxygen; F41.9 Anxiety disorder, unspecified; F32.A Depression, unspecified; J45.909 Unspecified asthma, uncomplicated; K50.90 Crohn's disease, unspecified, without complications; E11.9 Type 2 diabetes mellitus without complications; K21.9 Gastro-esophageal reflux disease without esophagitis; E78.00 Pure hypercholesterolemia, unspecified; I10 Essential (primary) hypertension; G47.33 Obstructive sleep apnea (adult) (pediatric); I48.0 Paroxysmal atrial fibrillation; M06.9 Rheumatoid arthritis, unspecified; M05.10 Rheumatoid lung disease with rheumatoid arthritis of unspecified site; Z98.890 Other specified postprocedural states; Z90.710 Acquired absence of both cervix and uterus; Z90.49 Acquired absence of other specified parts of digestive tract; Z96.22 Myringotomy tube(s) status; Z95.818 Presence of other cardiac implants and grafts
CPT/HCPCS: 71046; 87070; 87635; 87804; 87811; 87880; 99284

== ENCOUNTER 2023-09-29 12:30 | Emergency (ER) | payer MEDICARE, MEDICAID, SELFPAY ==
[2023-09-29] VITALS (27 sets, daily range): BP systolic 84–145; BP diastolic 60–86; PULSE 127–164; RESP 16–40; TEMP 38.3; O2SAT 78–100; BMI 48.4
--- NOTE | 2023-09-29 12:31 | ECG_ITS ---
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
--- NOTE | 2023-09-29 12:34 | XR_ITS ---
The [address] [address] Patient Name: BOBBY JULIO MRN: [id number] date: 1975 Sex: F Assigned Patient Location: ER Current Patient Location: ED.MAIN Accession/Order Number: [id number] Exam Date: 09/29/2023 12:45 Report Date: 09/29/2023 13:08 At the request of: SHIELA CAM Procedure: XR chest 1V EXAMINATION: XR chest 1V 09/29/2023 10:06 AM PST HISTORY: cp TECHNIQUE: Single frontal view of the chest acquired. COMPARISONS: Chest x-ray 09/03/2023. FINDINGS: Lines/tubes/other: Central venous catheter terminates in the lower one third of the SVC. Heart and mediastinum: Partially obscured. Bones: No acute osseous abnormality. Lungs: Severe right-sided and moderate left-sided pulmonary opacification, new compared with 09/03/2023. Pleura: There is no significant pleural effusion or pneumothorax. Other: None. XR/XR chest 1V IMPRESSION: Severe pulmonary opacification, right greater than left. The appearance favors pneumonia, however, the differential also includes asymmetric pulmonary edema, aspiration, and less likely ARDS. Electronically authenticated by: MEDHAT CRAIN Date: 09/29/2023 13:08
--- NOTE | 2023-09-29 12:35 | CT_ITS ---
[address] [address] Patient Name: BOBBY JULIO MRN: [id number] date: 1975 Sex: F Assigned Patient Location: ER Current Patient Location: ER Accession/Order Number: [id number] Exam Date: 09/29/2023 14:00 Report Date: 09/29/2023 15:37 At the request of: SHIELA CAM Procedure: CT angio chest EXAMINATION: CT angio chest HISTORY: sob COMPARISON: CT chest 08/30/2023 TECHNIQUE: Multi-planar CT images were created with IV contrast. Axial, Coronal, and Sagittal images. Dose reduction techniques were achieved by using automated exposure control and/or adjustment of mA and/or kV according to patient size and/or use of iterative reconstruction technique. 3-D reconstruction was performed on a separate workstation. FINDINGS: VASCULATURE: A few small emboli within the segmental and subsegmental vessels of the lower lobe basilar segments bilaterally and lingula. LUNGS: Dense confluent opacities scattered throughout the lungs, right greater than left, favoring pneumonia. PLEURA: No mass, effusion, or pneumothorax. ASHWINI: No mass or adenopathy. MEDIASTINUM: No mass or adenopathy. CARDIAC: Trace amount of pericardial fluid. AORTA: No aneurysm or dissection. CHEST WALL: No mass or axillary adenopathy. BONES: No bone lesion or fracture. LIMITED ABDOMEN: No suspicious findings. Limited images of the upper abdomen. OTHER: Negative. CT/CT angio chest IMPRESSION: 1. Marked bilateral pulmonary infiltrates suspected represent pneumonia. 2. Several small pulmonary emboli within the segmental and subsegmental vessels bilaterally. 3. Tiny pericardial effusion. Findings discussed with Brigid in the emergency department via telephone at 2:46 PM. Electronically authenticated by: OMER CHARLES Date: 09/29/2023 15:37
[2023-09-29] MEDS: IPRATROPIUM/ALBUTEROL SULFATE 3 ML AMPUL.NEB IH (12:44)
[2023-09-29 12:48] LABS: ABG PCO2 48.1 mmHg (35.0-45.0); Base Excess ABG 4.5 mmol/L (-2.0-2.0); HCO3 ABG 29.4 mmol/L (22.0-26.0); PO2 ABG 64.2 mmHg (80.0-100.0); pH ABG 7.395 (7.350-7.450)
[2023-09-29 12:49] LABS: Allen Test POSITIVE (POSITIVE); Carboxyhemoglobin 1.9 % (1.5-4.9); Methemoglobin ABG <1.0 % (1.1-1.9); O2 Mode NONREBREATHER MASK; Oxygen Saturation ABG 92.6 %; Puncture Site R RADIAL
--- NOTE | 2023-09-29 12:54 | ED_ITS ---
HPI - General Adult General Chief complaint: Shortness of Breath/Dyspnea Stated complaint: URTI/ SHORTNESS OF BREATH Time Seen by Provider: 09/29/23 12:31 Source: patient Mode of arrival: ambulance Limitations: physical limitation History of Present Illness HPI narrative: Patient is a 48-year-old female with multiple comorbidities is presenting to the ER by EMS in respiratory distress. Patient was just discharged from [facility] 3 days ago on Wednesday. Patient was admitted for acute on chronic respiratory failure with hypoxemia and COVID-19. Patient has a history of acute on chronic diastolic congestive heart failure. Patient has a history of multiple comorbidities including morbid obesity, hypertension, diabetes, rheumatoid arthritis, interstitial lung disease where she receives IV infusions for. Patient also has obstructive sleep apnea, patient has a proximal atrial fibrillation that she takes Coumadin for, also Chronic diastolic congestive heart failure. Patient is presenting by EMS on a 15 L nonrebreather with respiratory distress. Patient was discharged from [facility] on Wednesday. Patient was not responding to phone calls, this morning the police had to break into her house and found her laying in bed in her bedroom. Patient has no headache. Patient says that she did not hit her head. Patient is alert and orient x 3, GCS 15 when she arrived. Patient is tachypneic along with hypoxic. Patient's heart rate is in the 150s. Patient blood pressure was initially low normal. Patient has no chest pain or tightness, she does have difficulty breathing. No abdo harpreet pain, nausea or vomiting. No strokelike signs or symptoms. Patient has been taking antibiotics and steroids since she was discharged from [facility] on Wednesday All systems are negative except as noted/marked. All systems reviewed and otherwise negative. Nurses note and vital signs reviewed and patient is hypoxic. General: The patient appears in moderate respiratory distress. Patient is resting uncomfortably on cart. Patient is not toxic, lethargic, or listless. Patient is morbidly obese. Patient smells of urine. Skin: Warm, dry, no pallor noted. There is no rash noted. No petechiae, purpura. No signs of bleeding, abrasions, lacerations, or any signs of trauma. Head: Normocephalic, atraumatic Eye: Normal conjunctiva, no drainage, EOMI. PERRL Ears, Nose, Mouth, and Throat: oral mucosa is dry. Nares patent. Mouth without vesicles. Cardiovascular: Regular Rate and Rhythm, no murmur, gallop, rub Respiratory: Patient is in moderate respiratory distress, increased respiratory rate, + accessory muscle use, lungs are decreased bilateral, right greater than left. Rhonchi bilateral throughout, faint wheezing bilateral, no tracheal deviation Back: non-tender, no CVA tenderness bilaterally to percussion. No CT LS midline pain GI: Morbidly obese, no tenderness to palpation, no masses appreciated. No rebound, guarding, or rigidity noted. No distention Musculoskeletal: Patient has full range of motion of all of the extremities, no motor, sensory, or focal neurological deficits. Edema noted to bilateral lower extremities as well. Neurological: A&O x4, normal speech Psychiatric: Cooperative Related Data Home Medications Medication Instructions Recorded Confirmed bisoprolol fumarate 10 mg tablet 10 mg PO .every evening 07/12/23 07/16/23 bisoprolol fumarate 5 mg tablet 5 mg PO .every morning 07/12/23 07/16/23 furosemide 40 mg tablet (Lasix) 40 mg PO DAILY 07/12/23 07/16/23 furosemide 40 mg tablet (Lasix) 40 mg PO DAILY PRN weight gain 07/12/23 07/16/23 insulin omnipod CONT 07/12/23 mesalamine 0.375 gram 1.5 g PO DAILY 07/12/23 07/16/23 capsule,extended release 24 hr pantoprazole 40 mg granules 40 mg PO BID 07/12/23 07/16/23 delayed-release for susp in packet (Protonix) paroxetine HCl 30 mg tablet (Paxil) 30 mg PO DAILY 07/12/23 07/16/23 warfarin 5 mg tablet 2.5 mg PO .2 times a week 07/12/23 07/16/23 warfarin 7.5 mg tablet 7.5 mg PO .5 times a week 07/12/23 07/16/23 Previous Rx's Medication Instructions Recorded mlxifdkfeiahzpv-dqyslcvtkenmatw-QD 10 ml PO Q6H PRN cold symptoms 09/03/23 2 mg-30 mg-10 mg/5 mL oral syrup #200 mL (Bromfed DM) prednisone 20 mg tablet 60 mg (3 x 20 mg) PO DAILY 3 days 09/03/23 #9 tabs Allergies Allergy/AdvReac Type Severity Reaction Status Date / Time abatacept Allergy Unknown Verified 07/16/23 11:38 adalimumab [From Humira] Allergy Unknown Verified 07/16/23 11:38 amiloride Allergy Unknown Verified 07/16/23 11:38 amoxicillin Allergy Unknown Verified 07/16/23 11:38 aprepitant [From Emend] Allergy Unknown Verified 07/16/23 11:38 azithromycin [From Zithromax] Allergy Unknown Verified 07/16/23 11:38 cefaclor [From Ceclor] Allergy Unknown Verified 07/16/23 11:38 cefdinir [From Omnicef] Allergy Unknown Verified 07/16/23 11:38 celecoxib [From Celebrex] Allergy Unknown Verified 07/16/23 11:38 ciprofloxacin [From Cipro] Allergy Unknown Verified 07/16/23 11:38 clarithromycin [From Biaxin] Allergy Unknown Verified 07/16/23 11:38 clindamycin Allergy Unknown Verified 07/16/23 11:38 clonidine Allergy Unknown Verified 07/16/23 11:38 eplerenone [From Inspra] Allergy Unknown Verified 07/16/23 11:38 ertapenem [From Invanz] Allergy hives, Verified 07/16/23 11:38 facial swelling erythromycin base Allergy Unknown Verified 07/16/23 11:38 [From Ilosone] fosaprepitant [From Emend] Allergy Unknown Verified 07/16/23 11:38 isosorbide [From Imdur] Allergy Unknown Verified 07/16/23 11:38 losartan Allergy Unknown Verified 07/16/23 11:38 methotrexate Allergy Unknown Verified 07/16/23 11:38 methyldopa Allergy Hives Verified 07/16/23 11:38 nitrofurantoin Allergy Hives Verified 07/16/23 11:38 [From Macrobid] Penicillins Allergy Unknown Verified 07/16/23 11:38 ropinirole [From Requip] Allergy Unknown Verified 07/16/23 11:38 spironolactone Allergy Unknown Verified 07/16/23 11:38 sulfamethoxazole Allergy Unknown Verified 07/16/23 11:38 [From Bactrim] telithromycin [From Ketek] Allergy Unknown Verified 07/16/23 11:38 tocilizumab Allergy Unknown Verified 07/16/23 11:38 trimethoprim [From Bactrim] Allergy Unknown Verified 07/16/23 11:38 venlafaxine [From Effexor] Allergy Unknown Verified 07/16/23 11:38 willow Allergy Unknown Verified 07/16/23 11:38 augmentin Allergy Unknown Uncoded 07/16/23 11:38 avelox Allergy unk Uncoded 07/16/23 11:38 cardizem Allergy Unknown Uncoded 07/16/23 11:38 cats Allergy Unknown Uncoded 07/16/23 11:38 cefdinir Allergy Unknown Uncoded 07/16/23 11:38 chloraprep Allergy itching Uncoded 07/16/23 11:38 flu vaccine Allergy Hives Uncoded 07/16/23 11:38 gabapentin Allergy Unknown Uncoded 07/16/23 11:38 simvastatin Allergy Hives Uncoded 07/12/23 14:07 tofacitinib Allergy Unknown Uncoded 07/16/23 11:38 [facility] Medical History (Updated 09/29/23 @ 17:12 by Zay Covarrubias MD) Right shoulder pain ?M25.511 - Pain in right shoulder (ICD-10) GERD (gastroesophageal reflux disease) ?K21.9 - Gastro-esophageal reflux disease without esophagitis (ICD-10) Hiatal hernia ?K44.9 - Diaphragmatic hernia without obstruction or gangrene (ICD-10) Anxiety and depression ?F41.9 - Anxiety disorder, unspecified (ICD-10) ?F32.A - Depression, unspecified (ICD-10) HENRRY (obstructive sleep apnea) ?G47.33 - Obstructive sleep apnea (adult) (pediatric) (ICD-10) Rheumatoid arthritis ?M06.9 - Rheumatoid arthritis, unspecified (ICD-10) Asthma ?J45.909 - Unspecified asthma, uncomplicated (ICD-10) HTN (hypertension) ?I10 - Essential (primary) hypertension (ICD-10) 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 rheumatoid arthritis of unspecified site (ICD-10) Crohn's disease ?K50.90 - Crohn's disease, unspecified, without complications (ICD-10) Diabetes ?E11.9 - Type 2 diabetes mellitus without complications (ICD-10) Paroxysmal atrial fibrillation ?I48.0 - Paroxysmal atrial fibrillation (ICD-10) Gastroparesis ?K31.84 - Gastroparesis (ICD-10) High cholesterol ?E78.00 - Pure hypercholesterolemia, unspecified (ICD-10) Surgical History (Updated 07/12/23 @ 14:56 by Collette Hylotn) Encounter for pain management ?R52 - Pain, unspecified (ICD-10) S/P cardiac cath ?Z98.890 - Other specified postprocedural states (ICD-10) S/P tonsillectomy and adenoidectomy ?Z90.89 - Acquired absence of other organs (ICD-10) S/p bilateral myringotomy with tube placement ?Z96.22 - Myringotomy tube(s) status (ICD-10) H/O exploratory laparotomy ?Z98.890 - Other specified postprocedural states (ICD-10) History of cholecystectomy ?Z90.49 - Acquired absence of other specified parts of digestive tract (ICD- 10) H/O arthroscopy of left knee ?Z98.890 - Other specified postprocedural states (ICD-10) H/O: hysterectomy ?Z90.710 - Acquired absence of both cervix and uterus (ICD-10) Status post placement of implantable loop recorder ?Z95.818 - Presence of other cardiac implants and grafts (ICD-10) History of endoscopy ?Z98.890 - Other specified postprocedural states (ICD-10) Encounter for Essure implantation ?Z30.2 - Encounter for sterilization (ICD-10) History of endometrial ablation ?Z98.890 - Other specified postprocedural states (ICD-10) History of cardiac radiofrequency ablation ?Z98.890 - Other specified postprocedural states (ICD-10) Port-A-Cath in place ?Z95.828 - Presence of other vascular implants and grafts (ICD-10) Social History Smoking status: Never smoker Exam Constitutional Vital Signs, click to edit/add: Last Vital Signs Temp 100.9 F H 09/29/23 12:48 Pulse 129 H 09/29/23 16:40 Resp 40 H 09/29/23 12:48 BP 138/80 09/29/23 16:40 Pulse Ox 97 09/29/23 16:40 O2 Del Method Nonrebreather 09/29/23 12:45 O2 Flow Rate 15 09/29/23 12:45 FiO2 100 09/29/23 13:00 Course Vital Signs Vital signs: Vital Signs Pulse Rate 153 H 09/29/23 12:44 Pulse Oximetry 95 09/29/23 12:44 Temperature 100.9 F H 09/29/23 12:48 Pulse Rate 129 H 09/29/23 16:40 Respiratory Rate 40 H 09/29/23 12:48 Blood Pressure 138/80 09/29/23 16:40 Pulse Oximetry 97 09/29/23 16:40 Oxygen Delivery Method Nonrebreather 09/29/23 12:45 Oxygen Delivery Flow Rate 15 09/29/23 12:45 Fraction of Inspired Oxygen 100 09/29/23 13:00 Medical Decision Making MDM Narrative Medical decision making narrative: CTA CHEST: FINDINGS: VASCULATURE: A few small emboli within the segmental and subsegmental vessels of the lower lobe basilar segments bilaterally and lingula. LUNGS: Dense confluent opacities scattered throughout the lungs, right greater than left, favoring pneumonia. PLEURA: No mass, effusion, or pneumothorax. ASHWINI: No mass or adenopathy. MEDIASTINUM: No mass or adenopathy. CARDIAC: Trace amount of pericardial fluid. AORTA: No aneurysm or dissection. CHEST WALL: No mass or axillary adenopathy. BONES: No bone lesion or fracture. LIMITED ABDOMEN: No suspicious findings. Limited images of the upper abdomen. OTHER: Negative. IMPRESSION: 1. Marked bilateral pulmonary infiltrates suspected represent pneumonia. 2. Several small pulmonary emboli within the segmental and subsegmental vessels bilaterally. 3. Tiny pericardial effusion. Findings discussed with Brigid in the emergency department via telephone at 2:46 PM. Electronically authenticated by: OMER CHARELS Date: 09/29/2023 15:37 Patient has multiple lab abnormalities, including white blood cells at 36, subtherapeutic INR 1.24. Patient's ABG shows 7.395, CO2 is 48, oxygen was 64 on 15 L nonrebreather. Carbon monoxide level is negative. Patient lactic acid was 2.8, procalcitonin was 2.98. Sodium 146, BUN and creatinine were 28/1.27. Magnesium was 2.5. Patient was immediately placed on BiPAP when she arrived to the ER. Patient has been tachycardic for majority of the time that she has been in the ER. Patient initially started with a heart rate in the 150/160s, patient's heart rate was in the 120s at time of transfer. Patient has been given a total of 3 L of IV fluid, first liter was normal saline, second 2 L lactated Ringer's. Patient has multiple drug allergies, most of which are rash or hives. Patient was given imipenem and vancomycin. Patient said that she had rash/hives to Cardizem, so she was initially given a bolus of 15 mg of Cardizem that helped somewhat with the heart rate. Uncertain if patient was sinus tachycardia versus a flutter, so a second Cardizem bolus of 20 mg was given and starting on a drip of Cardizem. Patient has been continuing to receive IV fluids as well. Patient has been tolerating BiPAP, patient does feel that she is breathing better with the BiPAP. There has been a sick Amount of time spent at bedside, spent with Bob RN as well. Multiple bedside visits have been made. I initially had spoken to Dr. Miranda when patient arrived the potential admission and consultation. I spoke to Dr. Amado, hospitalist at . She stated that patient was too critical and recommended transfer. Patient's initial troponin was 760s. Second repeat troponin was in the mid 800s. Patient has had no acute ST changes. This could be demand ischemia secondary to respiratory distress along with prolonged tachycardia. Uncertain how long patient has been tachycardic for, this could have been ongoing for several days. Patient will be transferred to the [facility], patient will be admitted to the ICU to Dr. Ricks. Transfer will be here at approximately 5 PM. I initially spoke to Dr. Wayne Hayes and he agreed to admission to the ICU and the case was presented to him at the [facility]. Multiple bedside visits have been made. Patient is aware of the possibility of intubation, we had this discussion when patient initially arrived to the ER. Patient is a full code. Patient has improved with BiPAP and there is no need for intubation at this time. Critical care time >75 minutes exclusive from separate billable procedures that were performed. The following was considered in the determination of critical care but not limited to the level of medical decision making, intensive cardiac and/or respiratory monitoring, frequent vital sign monitoring, evaluation of laboratory studies, evaluation of radiographic studies, oxygen monitoring, and constant monitoring and speaking to family at bedside Lab Data Lab results reviewed: Yes I reviewed the patient's lab results Labs: Lab Results 09/29/23 09/29/23 09/29/23 Range/Units 12:37 13:03 13:15 WBC 36.1 H* (4.0-11.0) 10^3/uL RBC 4.67 (4.20-5.40) 10^6/uL Hgb 12.8 (12.0-16.0) g/dL Hct 40.7 (36.0-48.0) % MCV 87.2 (81.0-99.0) fL MCH 27.4 (26.7-34.0) pg MCHC 31.4 (29.9-35.2) g/dL RDW 14.6 (11.0-15.0) % Plt Count 351 (150-450) 10^3/uL MPV 11.5 (9.5-13.5) fL Seg Neuts % (Manual) 89.0 Band Neutrophils % 2.0 (0-5) % Lymphocytes % (Manual) 5.0 L (20.5-60.0) % Monocytes % (Manual) 4.0 (1.7-12.0) % Eosinophils % (Manual) 0.0 L (0.9-7.0) % Basophils % (Manual) 0.0 L (0.2-2.0) % Neutrophils # (Manual) 32.12 H (1.4-6.5) 10^3/uL Band Neutrophils # 0.7 H (0.0-0.3) 10^3/uL Lymphocytes # (Manual) 1.80 (1.20-3.80) 10^3/uL Monocytes # (Manual) 1.44 H (0.30-0.80) 10^3/uL Eosinophils # (Manual) 0.00 (0.00-0.70) 10^3/uL Basophils # (Manual) 0.00 (0.00-0.10) 10^3/uL Anisocytosis 1+ PT 13.0 H (9.0-11.6) sec INR 1.24 Puncture Site R radial ABG pH 7.395 (7.350-7.450) ABG pCO2 48.1 H (35.0-45.0) mmHg ABG pO2 64.2 L (80.0-100.0) mmHg ABG HCO3 29.4 H (22.0-26.0) mmol/L ABG O2 Saturation 92.6 % ABG Base Excess 4.5 H (-2.0-2.0) mmol/L ABG Methemoglobin <1.0 L (1.1-1.9) % Kelvin Test Positive (POSITIVE) Carboxyhemoglobin 1.9 (1.5-4.9) % Sodium 146 H (136-145) mmol/L Potassium 3.5 (3.5-5.1) mmol/L Chloride 103 (98-107) mmol/L Carbon Dioxide 28.1 (21.0-32.0) mmol/L Anion Gap 18.4 BUN 28.0 H (7.0-18.0) mg/dL Creatinine 1.27 H (0.55-1.02) mg/dL Est GFR ( Amer) 54 L (>=60) Est GFR (Non-Af Amer) 45 L (>=60) BUN/Creatinine Ratio 22.0 Glucose 342 H (74-106) mg/dL Lactate 2.8 H* (0.4-2.0) mmol/L Calcium 9.4 (8.5-10.1) mg/dL Magnesium 2.5 H (1.8-2.4) mg/dL Total Bilirubin 2.0 H (0.2-1.0) mg/dL AST 59 H (15-37) U/L ALT 96 H (14-59) U/L Alkaline Phosphatase 175 H (46-116) U/L Troponin I High Sens 767.2 H* (4.0-51.3) pg/mL NT-Pro-B Natriuret Pep 7693.0 H* (<=450.0) pg/mL Total Protein 7.0 (6.4-8.2) g/dL Albumin 1.8 L (3.4-5.0) g/dL Globulin 5.2 g/dL Albumin/Globulin Ratio 0.3 Lipase 16.0 (16.0-77.0) U/L Procalcitonin 2.98 H (0.00-0.50) ng/mL Urine Color (YELLOW) Urine Clarity (CLEAR) Urine pH (5.0-9.0) Ur Specific [place] (1.005-1.025) Urine Protein (NEG/TRACE) mg/dL Urine Glucose (UA) (NEGATIVE) mg/dL Urine Ketones (NEGATIVE) mg/dL Urine Occult Blood (NEGATIVE) Urine Nitrite (NEGATIVE) Urine Bilirubin (NEGATIVE) Urine Urobilinogen (0.2-1.0) EU/dL Ur Leukocyte Esterase (NEGATIVE) Urine RBC (0-2) #/HPF Urine WBC (NONE SEEN) #/HPF Ur Squamous Epith Cells (NONE/RARE) #/LPF Urine Crystals (None Seen) #/HPF Amorphous Sediment Urine Bacteria (NONE SEEN) #/HPF Urine Casts (NONE SEEN) #/LPF Coarse Granular Casts Urine Mucus (NONE SEEN) Ur Culture Indicated? Urine Opiates Screen (NEGATIVE) Ur Buprenorphine Scrn (NEGATIVE) Ur Oxycodone Screen (NEGATIVE) Urine Methadone Screen (NEGATIVE) Ur Barbiturates Screen (NEGATIVE) U Tricyclic Antidepress (NEGATIVE) Ur Phencyclidine Scrn (NEGATIVE) Ur Amphetamines Screen (NEGATIVE) U Methamphetamines Scrn (NEGATIVE) U Benzodiazepines Scrn (NEGATIVE) Urine Cocaine Screen (NEGATIVE) U Cannabinoids Screen (NEGATIVE) SARS-CoV-2 (PCR) (NEGATIVE) Influenza Type A Ag Influenza Type B Ag RSV Antigen (NOT DETECTE) SARS-CoV-2 RNA (ANAI) (NOT DETECTE) 09/29/23 09/29/23 09/29/23 Range/Units 13:16 14:17 14:40 WBC (4.0-11.0) 10^3/uL RBC (4.20-5.40) 10^6/uL Hgb (12.0-16.0) g/dL Hct (36.0-48.0) % MCV (81.0-99.0) fL MCH (26.7-34.0) pg MCHC (29.9-35.2) g/dL RDW (11.0-15.0) % Plt Count (150-450) 10^3/uL MPV (9.5-13.5) fL Seg Neuts % (Manual) Band Neutrophils % (0-5) % Lymphocytes % (Manual) (20.5-60.0) % Monocytes % (Manual) (1.7-12.0) % Eosinophils % (Manual) (0.9-7.0) % Basophils % (Manual) (0.2-2.0) % Neutrophils # (Manual) (1.4-6.5) 10^3/uL Band Neutrophils # (0.0-0.3) 10^3/uL Lymphocytes # (Manual) (1.20-3.80) 10^3/uL Monocytes # (Manual) (0.30-0.80) 10^3/uL Eosinophils # (Manual) (0.00-0.70) 10^3/uL Basophils # (Manual) (0.00-0.10) 10^3/uL Anisocytosis PT (9.0-11.6) sec INR Puncture Site ABG pH (7.350-7.450) ABG pCO2 (35.0-45.0) mmHg ABG pO2 (80.0-100.0) mmHg ABG HCO3 (22.0-26.0) mmol/L ABG O2 Saturation % ABG Base Excess (-2.0-2.0) mmol/L ABG Methemoglobin (1.1-1.9) % Kelvin Test (POSITIVE) Carboxyhemoglobin (1.5-4.9) % Sodium (136-145) mmol/L Potassium (3.5-5.1) mmol/L Chloride (98-107) mmol/L Carbon Dioxide (21.0-32.0) mmol/L Anion Gap BUN (7.0-18.0) mg/dL Creatinine (0.55-1.02) mg/dL Est GFR ( Amer) (>=60) Est GFR (Non-Af Amer) (>=60) BUN/Creatinine Ratio Glucose (74-106) mg/dL Lactate (0.4-2.0) mmol/L Calcium (8.5-10.1) mg/dL Magnesium (1.8-2.4) mg/dL Total Bilirubin (0.2-1.0) mg/dL AST (15-37) U/L ALT (14-59) U/L Alkaline Phosphatase (46-116) U/L Troponin I High Sens 884.8 H* (4.0-51.3) pg/mL NT-Pro-B Natriuret Pep (<=450.0) pg/mL Total Protein (6.4-8.2) g/dL Albumin (3.4-5.0) g/dL Globulin g/dL Albumin/Globulin Ratio Lipase (16.0-77.0) U/L Procalcitonin (0.00-0.50) ng/mL Urine Color Dk. orange (YELLOW) Urine Clarity Slightly cloudy A (CLEAR) Urine pH 6.0 (5.0-9.0) Ur Specific [place] 1.025 (1.005-1.025) Urine Protein 100 A (NEG/TRACE) mg/dL Urine Glucose (UA) 100 A (NEGATIVE) mg/dL Urine Ketones Trace A (NEGATIVE) mg/dL Urine Occult Blood Trace-i (NEGATIVE) Urine Nitrite Negative (NEGATIVE) Urine Bilirubin Moderate A (NEGATIVE) Urine Urobilinogen >=8.0 (0.2-1.0) EU/dL Ur Leukocyte Esterase Negative (NEGATIVE) Urine RBC 0-2 (0-2) #/HPF Urine WBC None seen (NONE SEEN) #/HPF Ur Squamous Epith Cells Moderate A (NONE/RARE) #/LPF Urine Crystals None seen (None Seen) #/HPF Amorphous Sediment Few Urine Bacteria None seen (NONE SEEN) #/HPF Urine Casts Seen A (NONE SEEN) #/LPF Coarse Granular Casts Rare Urine Mucus None seen (NONE SEEN) Ur Culture Indicated? Already ordered Urine Opiates Screen Negative (NEGATIVE) Ur Buprenorphine Scrn Negative (NEGATIVE) Ur Oxycodone Screen Negative (NEGATIVE) Urine Methadone Screen Negative (NEGATIVE) Ur Barbiturates Screen Negative (NEGATIVE) U Tricyclic Antidepress Negative (NEGATIVE) Ur Phencyclidine Scrn Negative (NEGATIVE) Ur Amphetamines Screen Negative (NEGATIVE) U Methamphetamines Scrn Negative (NEGATIVE) U Benzodiazepines Scrn Negative (NEGATIVE) Urine Cocaine Screen Negative (NEGATIVE) U Cannabinoids Screen Negative (NEGATIVE) SARS-CoV-2 (PCR) Negative (NEGATIVE) Influenza Type A Ag Negative Influenza Type B Ag Negative RSV Antigen Not detected (NOT DETECTE) SARS-CoV-2 RNA (ANAI) Not detected (NOT DETECTE) 09/29/23 Range/Units 16:23 WBC (4.0-11.0) 10^3/uL RBC (4.20-5.40) 10^6/uL Hgb (12.0-16.0) g/dL Hct (36.0-48.0) % MCV (81.0-99.0) fL MCH (26.7-34.0) pg MCHC (29.9-35.2) g/dL RDW (11.0-15.0) % Plt Count (150-450) 10^3/uL MPV (9.5-13.5) fL Seg Neuts % (Manual) Band Neutrophils % (0-5) % Lymphocytes % (Manual) (20.5-60.0) % Monocytes % (Manual) (1.7-12.0) % Eosinophils % (Manual) (0.9-7.0) % Basophils % (Manual) (0.2-2.0) % Neutrophils # (Manual) (1.4-6.5) 10^3/uL Band Neutrophils # (0.0-0.3) 10^3/uL Lymphocytes # (Manual) (1.20-3.80) 10^3/uL Monocytes # (Manual) (0.30-0.80) 10^3/uL Eosinophils # (Manual) (0.00-0.70) 10^3/uL Basophils # (Manual) (0.00-0.10) 10^3/uL Anisocytosis PT (9.0-11.6) sec INR Puncture Site ABG pH (7.350-7.450) ABG pCO2 (35.0-45.0) mmHg ABG pO2 (80.0-100.0) mmHg ABG HCO3 (22.0-26.0) mmol/L ABG O2 Saturation % ABG Base Excess (-2.0-2.0) mmol/L ABG Methemoglobin (1.1-1.9) % Kelvin Test (POSITIVE) Carboxyhemoglobin (1.5-4.9) % Sodium (136-145) mmol/L Potassium (3.5-5.1) mmol/L Chloride (98-107) mmol/L Carbon Dioxide (21.0-32.0) mmol/L Anion Gap BUN (7.0-18.0) mg/dL Creatinine (0.55-1.02) mg/dL Est GFR ( Amer) (>=60) Est GFR (Non-Af Amer) (>=60) BUN/Creatinine Ratio Glucose (74-106) mg/dL Lactate 2.0 (0.4-2.0) mmol/L Calcium (8.5-10.1) mg/dL Magnesium (1.8-2.4) mg/dL Total Bilirubin (0.2-1.0) mg/dL AST (15-37) U/L ALT (14-59) U/L Alkaline Phosphatase (46-116) U/L Troponin I High Sens (4.0-51.3) pg/mL NT-Pro-B Natriuret Pep (<=450.0) pg/mL Total Protein (6.4-8.2) g/dL Albumin (3.4-5.0) g/dL Globulin g/dL Albumin/Globulin Ratio Lipase (16.0-77.0) U/L Procalcitonin (0.00-0.50) ng/mL Urine Color (YELLOW) Urine Clarity (CLEAR) Urine pH (5.0-9.0) Ur Specific [place] (1.005-1.025) Urine Protein (NEG/TRACE) mg/dL Urine Glucose (UA) (NEGATIVE) mg/dL Urine Ketones (NEGATIVE) mg/dL Urine Occult Blood (NEGATIVE) Urine Nitrite (NEGATIVE) Urine Bilirubin (NEGATIVE) Urine Urobilinogen (0.2-1.0) EU/dL Ur Leukocyte Esterase (NEGATIVE) Urine RBC (0-2) #/HPF Urine WBC (NONE SEEN) #/HPF Ur Squamous Epith Cells (NONE/RARE) #/LPF Urine Crystals (None Seen) #/HPF Amorphous Sediment Urine Bacteria (NONE SEEN) #/HPF Urine Casts (NONE SEEN) #/LPF Coarse Granular Casts Urine Mucus (NONE SEEN) Ur Culture Indicated? Urine Opiates Screen (NEGATIVE) Ur Buprenorphine Scrn (NEGATIVE) Ur Oxycodone Screen (NEGATIVE) Urine Methadone Screen (NEGATIVE) Ur Barbiturates Screen (NEGATIVE) U Tricyclic Antidepress (NEGATIVE) Ur Phencyclidine Scrn (NEGATIVE) Ur Amphetamines Screen (NEGATIVE) U Methamphetamines Scrn (NEGATIVE) U Benzodiazepines Scrn (NEGATIVE) Urine Cocaine Screen (NEGATIVE) U Cannabinoids Screen (NEGATIVE) SARS-CoV-2 (PCR) (NEGATIVE) Influenza Type A Ag Influenza Type B Ag RSV Antigen (NOT DETECTE) SARS-CoV-2 RNA (ANAI) (NOT DETECTE) ECG Data Attestation: I personally reviewed and interpreted this ECG as follows: Interpretation: EKG #1. Sinus tachycardia versus a flutter at 151 beats a minute. Left axis deviation. Artifact noted. QTc of 458. EKG will be repeated EKG #2. Sinus tachycardia at 161. Normal axis deviation. Artifact noted. QTc of 447. No significant changes from first EKG. Questionable sinus tachycardia versus atrial flutter. EKG #3. 1605 sinus tachy//irregular regular rhythm at 137 beats a minute. Normal axis deviation. Nonspecific ST changes. QTc of 376. No ST elevation. Discharge Plan Discharge Chief Complaint: Shortness of Breath/Dyspnea Clinical Impression: Hyponatremia, Leukocytosis, Hypoxia, Sepsis, Acute respiratory distress, Bilateral pneumonia, Bilateral pulmonary embolism, Acidosis, lactic Patient Disposition: [facility] Time of Disposition Decision: 14:20 [facility] Condition: Critical Mode of Transportation: EMS
--- NOTE | 2023-09-29 12:56 | ECG_ITS ---
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
[2023-09-29] MEDS: 0.9 % SODIUM CHLORIDE 1,000 ML 1000 ML IV (13:04)
[2023-09-29] MEDS: ONDANSETRON PF 4 MG/2 ML VIAL IV (13:05)
[2023-09-29] MEDS: IMIPENEM/CILASTATIN SODIUM 1,000 MG in 0.9 % SODIUM CHLORIDE 100 ML 100 MG IV (13:19)
[2023-09-29] MEDS: VANCOMYCIN HCL 2,000 MG in 0.9 % SODIUM CHLORIDE 500 ML 250 MG IV (13:23)
[2023-09-29 13:25] LABS: Hematocrit 40.7 % (36.0-48.0); Hemoglobin 12.8 g/dL (12.0-16.0); Mean Corpuscular HGB Conc 31.4 g/dL (29.9-35.2); Mean Corpuscular Hemoglobin 27.4 pg (26.7-34.0); Mean Corpuscular Volume 87.2 fL (81.0-99.0); Mean Platelet Volume 11.5 fL (9.5-13.5); Platelet Count 351 10^3/uL (150-450); Red Blood Count 4.67 10^6/uL (4.20-5.40); Red Cell Distribution Width 14.6 % (11.0-15.0)
[2023-09-29 13:29] LABS: White Blood Count 36.1 10^3/uL (4.0-11.0)
[2023-09-29] MEDS: DILTIAZEM HCL 25 MG/5 ML VIAL 15 MG IV (13:35)
[2023-09-29 13:37] LABS: Band Neutrophils Absolute 0.7 10^3/uL (0.0-0.3); Monocytes Absolute Manual 1.44 10^3/uL (0.30-0.80); Segmented Neut Absolute Manual 32.12 10^3/uL (1.4-6.5)
[2023-09-29 13:38] LABS: Anisocytosis 1+; INR 1.24
[2023-09-29 13:44] LABS: Influenza Virus A Antigen Negative; Influenza Virus B Antigen Negative; Internal Control Within Normal Limits; Respiratory Syncytial Virus Not Detected (NOT DETECTE); SARS-CoV-2 Ag NEGATIVE (NEGATIVE)
[2023-09-29 13:49] LABS: Magnesium 2.5 mg/dL (1.8-2.4)
[2023-09-29 13:52] LABS: Lactate/Lactic Acid 2.8 mmol/L (0.4-2.0)
--- NOTE | 2023-09-29 13:52 | PC.NURSE ---
BNP and lactic results reported to Dr. Covarrubias
[2023-09-29 14:05] LABS: Alanine Aminotransferase 96 U/L (14-59); Albumin Globulin Ratio 0.3; Albumin Level 1.8 g/dL (3.4-5.0); Alkaline Phosphatase 175 U/L (46-116); Anion Gap 18.4; Aspartate Amino Transferase 59 U/L (15-37); Calcium 9.4 mg/dL (8.5-10.1); Carbon Dioxide 28.1 mmol/L (21.0-32.0); Chloride 103 mmol/L (98-107); Estimated GFR (African America 54 (>=60); Estimated GFR (Non-African Ame 45 (>=60); Globulin 5.2 g/dL; Glucose 342 mg/dL (74-106); Potassium 3.5 mmol/L (3.5-5.1); Sodium 146 mmol/L (136-145)
[2023-09-29 14:06] LABS: Troponin I High Sensitivity 767.2 pg/mL (4.0-51.3)
[2023-09-29 14:28] LABS: Bilirubin Urine MODERATE (NEGATIVE); Blood Urine TRACE-I (NEGATIVE); Clarity Urine SLIGHTLY CLOUDY (CLEAR); Color Urine DK. ORANGE (YELLOW); Glucose Urine UA 100 mg/dL (NEGATIVE); Ketones Urine TRACE mg/dL (NEGATIVE); Leukocyte Esterase Urine NEGATIVE (NEGATIVE); Nitrite Urine NEGATIVE (NEGATIVE); Protein Urine 100 mg/dL (NEG/TRACE); Specific Gravity Urine 1.025 (1.005-1.025); Urine Microscopic Indicated YES; Urobilinogen Urine >=8.0 EU/dL (0.2-1.0)
[2023-09-29 14:31] LABS: PROCALCITONIN 2.98 ng/mL (0.00-0.50)
[2023-09-29 14:34] LABS: Amorphous Sediment Urine FEW; Bacteria Urine NONE SEEN #/HPF (NONE SEEN); Cast Seen? SEEN #/LPF (NONE SEEN); Coarse Granular Casts Urine RARE; Crystals Seen? None Seen #/HPF (None Seen); Mucus Urine NONE SEEN (NONE SEEN); RBC Urine 0-2 #/HPF (0-2); Squamous Epithelial Cell Urine MODERATE #/LPF (NONE/RARE); WBC Urine NONE SEEN #/HPF (NONE SEEN)
[2023-09-29 14:35] LABS: Amphetamine Screen Urine NEGATIVE (NEGATIVE); Barbiturates Screen Urine NEGATIVE (NEGATIVE); Benzodiazepines Screen Urine NEGATIVE (NEGATIVE); Buprenorphine Screen Urine NEGATIVE (NEGATIVE); Cannabinoid Screen Urine NEGATIVE (NEGATIVE); Cocaine Screen Urine NEGATIVE (NEGATIVE); Methadone Screen Urine NEGATIVE (NEGATIVE); Methamphetamines Screen Urine NEGATIVE (NEGATIVE); Opiate Screen Urine NEGATIVE (NEGATIVE); Oxycodone Screen Urine NEGATIVE (NEGATIVE); Phencyclidine Screen Urine NEGATIVE (NEGATIVE); Tricyclic Antidepressant Urine NEGATIVE (NEGATIVE); Urine Culture Indicated ALREADY ORDERED
[2023-09-29] MEDS: DILTIAZEM HCL 25 MG/5 ML VIAL 20 MG IV (14:51)
[2023-09-29] MEDS: dilTIAZem HCL 125 MG in 0.9 % SODIUM CHLORIDE 100 ML IV (14:54)
[2023-09-29 15:02] LABS: Troponin I High Sensitivity 884.8 pg/mL (4.0-51.3)
[2023-09-29] MEDS: LACTATED RINGER'S SOLUTION 1,000 ML 1000 ML IV ×2 (15:30→17:17)
[2023-09-29] MEDS: HEPARIN SODIUM,PORCINE/D5W 25,000 UNIT/500 ML IV.SOLN 30 UNIT IV (15:39)
[2023-09-29] MEDS: HEPARIN SODIUM (PORCINE) 5,000 UNIT/ML VIAL 7200 UNIT IV (15:39)
[2023-09-29 15:42] LABS: SARS-CoV-2 NAA NOT DETECTED (NOT DETECTE)
--- NOTE | 2023-09-29 16:04 | ECG_ITS ---
The 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
[2023-09-30 15:19] LABS: A. calcoaceticus-baumannii Cpx NOT DETECTED (NOT DETECTE); Bacteroides fragilis NOT DETECTED (NOT DETECTE); Candida albicans NOT DETECTED (NOT DETECTE); Candida auris NOT DETECTED (NOT DETECTE); Candida glabrata NOT DETECTED (NOT DETECTE); Candida krusei NOT DETECTED (NOT DETECTE); Candida parapsilosis NOT DETECTED (NOT DETECTE); Candida tropicalis NOT DETECTED (NOT DETECTE); Cryptococcus neoformans/gattii NOT DETECTED (NOT DETECTE); Enterobacter cloacae complex NOT DETECTED (NOT DETECTE); Enterobacterales NOT DETECTED (NOT DETECTE); Enterococcus faecalis NOT DETECTED (NOT DETECTE); Enterococcus faecium NOT DETECTED (NOT DETECTE); Klebsiella aerogenes NOT DETECTED (NOT DETECTE); Klebsiella pneumoniae group NOT DETECTED (NOT DETECTE); Listeria monocytogenes NOT DETECTED (NOT DETECTE); Neisseria meningitidis NOT DETECTED (NOT DETECTE); Proteus spp. NOT DETECTED (NOT DETECTE); Pseudomonas aeruginosa NOT DETECTED (NOT DETECTE); Salmonella spp. NOT DETECTED (NOT DETECTE); Serratia marcescens NOT DETECTED (NOT DETECTE); Staphylococcus epidermidis NOT DETECTED (NOT DETECTE); Staphylococcus lugdunensis NOT DETECTED (NOT DETECTE); Staphylococcus spp. NOT DETECTED (NOT DETECTE); Stenotrophomonas maltophilia NOT DETECTED (NOT DETECTE); Streptococcus agalactiae NOT DETECTED (NOT DETECTE); Streptococcus pneumoniae NOT DETECTED (NOT DETECTE); Streptococcus pyogenes NOT DETECTED (NOT DETECTE); Streptococcus spp. NOT DETECTED (NOT DETECTE)
[2023-09-30 16:34] LABS: Source Blood
[2023-09-30 16:36] LABS: Haemophilus influenzae DETECTED (NOT DETECTE)
== END 2023-09-29 18:13 | disposition short-term general hospital (02) ==
PROVIDERS: Emergency Provider Emergency Medicine
DX: A41.9 Sepsis, unspecified organism (principal); J18.9 Pneumonia, unspecified organism; E87.1 Hypo-osmolality and hyponatremia; I26.99 Other pulmonary embolism without acute cor pulmonale; I50.32 Chronic diastolic (congestive) heart failure; E66.01 Morbid (severe) obesity due to excess calories; I11.0 Hypertensive heart disease with heart failure; E11.9 Type 2 diabetes mellitus without complications; M06.9 Rheumatoid arthritis, unspecified; J84.9 Interstitial pulmonary disease, unspecified; G47.33 Obstructive sleep apnea (adult) (pediatric); Z79.01 Long term (current) use of anticoagulants; I48.0 Paroxysmal atrial fibrillation; Z79.899 Other long term (current) drug therapy; K21.9 Gastro-esophageal reflux disease without esophagitis; K44.9 Diaphragmatic hernia without obstruction or gangrene; F41.8 Other specified anxiety disorders; J45.909 Unspecified asthma, uncomplicated; R06.03 Acute respiratory distress; K50.90 Crohn's disease, unspecified, without complications; E78.00 Pure hypercholesterolemia, unspecified; Z90.49 Acquired absence of other specified parts of digestive tract; Z90.710 Acquired absence of both cervix and uterus; Z86.16 Personal history of COVID-19; D72.829 Elevated white blood cell count, unspecified; E87.20 Acidosis, unspecified; Z68.42 Body mass index [BMI] 45.0-49.9, adult
CPT/HCPCS: 36415; 36600; 51702; 71045; 71275; 80053; 80307; 81001; 83050; 83605; 83690; 83735; 83880; 84145; 84484; 85027; 85610; 87040; 87070; 87086; 87150; 87205; 87420; 87635; 87798; 87804; 87811; 93005; 94640; 94660; 96365; 96366; 96368; 96375; 96376; 99285; J3370; Q9967

== ENCOUNTER 2024-02-01 13:17 | Outpatient (OUT) | payer MEDICARE, MEDICAID, SELFPAY ==
--- NOTE | 2024-02-01 | XR_ITS ---
The [address] [address] Patient Name: BOBBY JULIO MRN: [id number] date: 1975 Sex: F Assigned Patient Location: Current Patient Location: Accession/Order Number: [id number] Exam Date: 02/01/2024 13:26 Report Date: 02/01/2024 15:59 At the request of: KENDRA SHAHID Procedure: XR ankle LT min 3V PROCEDURE: XR ankle LT min 3V COMPARISON: None. HISTORY: LEFT ANKLE PAIN FINDINGS: BONES:No acute fracture or dislocation. Mild to moderate enthesopathic spurring of the calcaneus. Calcific density along the lateral inferior cuboid likely degenerative or remote injury. SOFT TISSUES:Negative. No visible soft tissue swelling. EFFUSION:None visible. OTHER: Negative. XR/XR ankle LT min 3V IMPRESSION: No acute abnormality Electronically authenticated by: HYUN GASTON Date: 02/01/2024 15:59
== END 2024-02-01 13:18 | disposition home or self-care (01) ==
LOC: EC 13:18
PROVIDERS: Visit Provider Podiatrist Foot & Ankle Surgery
DX: M25.572 Pain in left ankle and joints of left foot (principal)
CPT/HCPCS: 73610

== ENCOUNTER 2024-04-06 10:01 | Outpatient (RCR) | payer MEDICARE, MEDICAID, SELFPAY | END 2024-05-12 12:08 | disposition home or self-care (01) | LOC: PT 10:01 | PROVIDERS: Visit Provider Physician Assistant | DX: M76.62 Achilles tendinitis, left leg (principal); R26.9 Unspecified abnormalities of gait and mobility; R26.89 Other abnormalities of gait and mobility | CPT/HCPCS: 97110; 97161 ==

== ENCOUNTER 2024-04-18 09:36 | Outpatient (OUT) | payer MEDICARE, MEDICAID, SELFPAY ==
--- NOTE | 2024-04-18 09:40 | MR_ITS ---
The [address] [address] Patient Name: BOBBY JULIO MRN: [id number] date: 1975 Sex: F Assigned Patient Location: MRI Current Patient Location: MRI Accession/Order Number: [id number] Exam Date: 04/18/2024 09:55 Report Date: 04/20/2024 16:44 At the request of: KENDRA SHAHID Procedure: MR ankle LT wo con EXAM: MR ankle LT wo con. HISTORY: Achilles Tendonitis M76.62. COMPARISON: Left ankle x-rays 02/01/2024. TECHNIQUE: Multiplanar multisequence MRI of the left ankle was performed without contrast. This included axial T1, axial T2, coronal oblique PD fat-sat, coronal T2, coronal T1, sagittal T2, sagittal T1, sagittal PD fat-sat. FINDINGS: JOINTS: No talar dome osteochondral lesion is seen. The talonavicular and calcaneocuboid joints appear preserved. Subtalar joints appear preserved. The tarsometatarsal alignment appears preserved on this non-weightbearing study. The interosseous component of the Lisfranc ligament is identified and is intact. BONES: No focal bone marrow edema is identified. No T1 fracture line is noted. LIGAMENTS: The study is somewhat motion degraded, as seen, the anterior talofibular ligament is intact. The calcaneofibular and posterior talofibular ligament appears intact. The deep and superficial fibers of the deltoid ligament are intact. Superior medial band of the spring ligament is identified and is intact. The anterior and posterior tibiofibular ligaments are intact. TENDONS: The flexor, extensor and peroneal tendons are intact. No long-segment tenosynovitis is seen. There is moderate thickening of the mid to proximal Achilles tendon fibers measuring 0.8 cm in AP dimension extending 3.3 cm in proximal to distal dimension. Low-grade interstitial tear measures 1 mm in transverse dimension (series [id number], image 13). Mild adjacent soft tissue edema is noted. Small enthesophyte at the Achilles tendon insertion. SINUS TARSI: Normal fat signal is seen sinus tarsi. PLANTAR FASCIA: Plantar calcaneal spur is noted. No fascial tear. TARSAL TUNNEL: No mass lesion in tarsal tunnel is identified. MR/MR ankle LT wo con IMPRESSION: 1. Moderate tendinosis of the mid to proximal Achilles tendon fibers with low-grade interstitial tear and mild peritendinitis. 2. Chronic plantar fasciitis. 3. No acute ligamentous injury. No fracture. Electronically authenticated by: RENE AGUAYO Date: 04/20/2024 16:44
== END 2024-04-18 09:37 | disposition home or self-care (01) ==
LOC: MRI 09:36
PROVIDERS: Visit Provider Podiatrist Foot & Ankle Surgery
DX: M76.62 Achilles tendinitis, left leg (principal); M72.2 Plantar fascial fibromatosis
CPT/HCPCS: 73721